=== PATIENT | male | born 1965 | race African-American/Black ===

== ENCOUNTER 2020-01-31 18:18 | Inpatient (IN) | payer OTHER ==
[~2020-01-31 18:18] MED LIST: Magnevist 469MG/ML 20 ML VIAL ONE
[2020-01-31] MEDS ORDERED: metroNIDAZOLE 500 MG/100 ML BAG ONE (18:57)
[2020-01-31] MEDS ORDERED: Ketorolac Tromethamine 30 MG/ML VIAL ONE (18:57)
[2020-01-31] MEDS ORDERED: cefTRIAXone\\ROCEPHIN 2 GM VIAL ONE (18:57)
[2020-01-31] MEDS ORDERED: Vancomycin 1.5 GRAM/300 ML BAG 1.5 GM in Premix Bag 1 BAG IVPB SCH (19:00)
[2020-01-31 19:13] LABS: Bacteria/HPF None Seen HPF (None Seen); Bilirubin Negative (Negative); Blood, Urine Trace (Negative); Clarity Clear (Clear); Glucose, Urine (Dipstick) Greater than 1000 mg/dL (Negative); Leukocyte Negative Leu/uL (Negative); Nitrite Negative (Negative); Protein, Urine (Dipstick) 10 mg/dL (Neg-Trace); RBC/HPF 0-3 HPF (0-3); Squamous Epithelial 0-3 HPF (0-3); Urobilinogen 3 mg/dL (Less than 2); WBC/HPF 0-3 HPF (0-3)
[2020-01-31 19:46] LABS: #Lymphocytes 1.3 thou/uL (1.20-3.40); #Neutrophils 8.4 thou/uL (1.40-6.50); %Basophils 0.3 % (0.0-1.0); %Eosinophils 0.1 % (0.0-10.0); %Lymphocytes 11.7 % (21.0-51.0); %Monocytes 9.3 % (0.0-10.0); %Neutrophils 78.7 % (42.0-75.0); Hemoglobin 11.5 g/dL (14.0-18.0); Mean Corpuscular HGB CONC 31.6 g/dL (32.0-36.0); Mean Corpuscular Hemoglobin 26.9 pg (27.0-31.0); Mean Corpuscular Volume 85.2 fL (78.0-98.0); Mean Platelet Volume 8.9 fL (7.4-10.4); Platelet Count 194 thou/uL (130-400); RBC Distribution Width 11.5 % (11.5-14.5); Red Blood Cell (RBC) Count 4.28 mill/uL (4.70-6.10); White Blood Cell (WBC) Count 10.7 thou/uL (4.8-10.8)
--- NOTE | 2020-01-31 20:00 | RAD ---
CHEST ONE VIEW: 01/31/20 HISTORY: Weakness. Pain. COMPARISON: None. FINDINGS: The lungs are clear. No pneumothorax or effusion. Cardiac silhouette and mediastinal contours are wit hin normal limits. No acute osseous abnormality. IMPRESSION: No acute intrathoracic abnormality. POS: HOME
[2020-01-31 20:07] LABS: ALT (SGPT) 28 U/L (8-55); AST (SGOT) 22 U/L (5-34); Albumin 3.6 g/dL (3.5-5.0); Alkaline Phosphatase 122 U/L (40-110); Anion Gap 14 mmol/L (10-20); BUN (Urea Nitrogen) 19 mg/dL (8.4-25.7); Bilirubin, Total 0.6 mg/dL (0.2-1.2); CK (CPK) 448 U/L (30-200); Calc. Creatinine Clearance 0 mL/min (70-130); Calcium 8.2 mg/dL (7.8-10.44); Carbon Dioxide 21 mmol/L (22-29); Chloride 102 mmol/L (98-107); Estimated GFR-MDRD 58; Globulin 3.1 g/dL (2.4-3.5); Glucose 273 mg/dL (70-105); Potassium 4.1 mmol/L (3.5-5.1); Protein, Total 6.7 g/dL (6.0-8.3); Sodium 133 mmol/L (136-145)
[2020-02-01] MEDS ORDERED: Ondansetron PF 4 MG/2 ML Vial IVP PRN (02:33)
[2020-02-01] MEDS ORDERED: Bisacodyl 5 MG TAB PO PRN (02:35)
[2020-02-01] MEDS ORDERED: Senokot S 8.6-50 MG TAB PO PRN (02:35)
[2020-02-01] MEDS ORDERED: predniSONE 20 MG TAB PO SCH (02:45)
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
[2020-02-01] MEDS ORDERED: Dextrose 5% in Water 1,000 ML IV PRN (03:01)
[2020-02-01] MEDS ORDERED: Dextrose 50% Abboject 50 ML SYRINGE SLOW IVP PRN (03:01)
[2020-02-01] MEDS: Sodium Chloride 0.9% 1,000 ML IV SCH ×2 (03:04→15:59)
[2020-02-01 03:29] VITALS: BMI 29.0
[2020-02-01 05:51] LABS: #Lymphocytes 0.9 thou/uL (1.20-3.40); #Monocytes 1.1 thou/uL (0.11-0.59); #Neutrophils 7.5 thou/uL (1.40-6.50); %Basophils 0.3 % (0.0-1.0); %Eosinophils 0.4 % (0.0-10.0); %Lymphocytes 9.3 % (21.0-51.0); %Monocytes 11.4 % (0.0-10.0); %Neutrophils 78.5 % (42.0-75.0); Hemoglobin 11.8 g/dL (14.0-18.0); Mean Corpuscular HGB CONC 31.6 g/dL (32.0-36.0); Mean Corpuscular Hemoglobin 27.4 pg (27.0-31.0); Mean Corpuscular Volume 86.6 fL (78.0-98.0); Platelet Count 168 thou/uL (130-400); RBC Distribution Width 11.6 % (11.5-14.5); Red Blood Cell (RBC) Count 4.33 mill/uL (4.70-6.10); White Blood Cell (WBC) Count 9.6 thou/uL (4.8-10.8)
[2020-02-01 06:10] LABS: Anion Gap 13 mmol/L (10-20); BUN (Urea Nitrogen) 15 mg/dL (8.4-25.7); CK (CPK) 344 U/L (30-200); Calc. Creatinine Clearance 110 mL/min (70-130); Calcium 8.5 mg/dL (7.8-10.44); Carbon Dioxide 21 mmol/L (22-29); Chloride 107 mmol/L (98-107); Estimated GFR-MDRD Greater than 90; Glucose 166 mg/dL (70-105); Potassium 3.9 mmol/L (3.5-5.1); Sodium 137 mmol/L (136-145)
[2020-02-01] MEDS: HumaLOG 300 UNITS/3 ML VIAL SC PRN ×3 (06:17→16:01)
[2020-02-01] MEDS: Acetaminophen 325 MG TAB PO PRN ×2 (06:33→21:03)
--- NOTE | 2020-02-01 07:32 | MRI ---
MRI LUMBAR SPINE WITH AND WITHOUT CONTRAST: Date: 01/31/2020 HISTORY: Fever and back pain. COMPARISON: None. FINDINGS: The aortic contour is nonaneurysmal. No hydronephrosis. Exam is severely limited due to motion artifa ct throughout the exam. Paraspinal musculature is symmetric. The conus medullaris terminates near the mid L1 vertebral body. No marrow infiltrative process. No abnormal enhancement. Levels are as follows: L1-2: Normal disc. No neural foraminal or spinal canal narrowing. There is a moderate circumferentia l disc bulge. Mild facet arthrosis. Moderate bilateral neural foraminal narrowing with abutment of ledy th exiting L2 nerve roots. The spinal canal measures approximately 7.0 mm. L3-4: Mild degenerative disc space height loss and desiccation. Mild facet arthrosis. Moderate circu mferential disc osteophyte complex. Moderate to severe neural foraminal narrowing with abutment of ledy th exiting nerve roots. Spinal canal measures approximately 6.0 mm. L4-5: Mild disc desiccation and height loss. There is a circumferential disc osteophyte complex with central annular fissure. There is moderate bilateral neural foraminal narrowing with abutment of bot h exiting and traversing nerve roots. Spinal canal measures approximately 5-6 mm. L5-S1: Normal disc. Very small bilateral subforaminal disc osteophyte complexes. Mild bilateral neur al foraminal narrowing. IMPRESSION: 1. No interval enhancement to suggest mass or diskitis/osteomyelitis. 2. Congenitally foreshortened pedicles with congenitally narrowed spinal canal via lumbar spine. 3. Disc desiccation and height loss and disc bulges/osteophyte complexes lower lumbar spine with mul tilevel neural foraminal narrowing and exiting nerve root abutment. This is greatest at L4-5. POS: HOME
--- NOTE | 2020-02-01 07:38 | MRI ---
MRI THORACIC SPINE WITH AND WITHOUT CONTRAST: Date: 01/31/2020 HISTORY: Transverse myelitis. COMPARISON: None. FINDINGS: There is abnormal enlargement and T2 signal within the lower cervical cord not evaluated on this thor acic spine MRI. There is a large disc bulge at C6-7 with anterior cord abutment. No definite abnormal enhancement of the thoracic cord. There are patchy focal areas of increased cord signal at the level of T1 which may be part of the contiguous lower cervical spine abnormality. There is no marrow infiltrative process. No thoracic spinal neural foraminal or spinal canal narrowin g. Paraspinal soft tissues are unremarkable. IMPRESSION: 1. Incompletely evaluated abnormal lower cervical cord enlargement with some low grade minimal enhan cement. This can be seen with transverse myelitis. A cervical spine MRI with and without contrast wou ld be recommended for this evaluation. 2. No neural foraminal or spinal canal narrowing of the thoracic spine. 4. No diskitis/osteomyelitis of the thoracic spine. POS: HOME
--- NOTE | 2020-02-01 07:47 | MRI ---
MRI CERVICAL SPINE WITH AND WITHOUT CONTRAST: Date: 01/31/2020 HISTORY: Transverse myelitis. COMPARISON: None. FINDINGS: Cerebellar tonsils normal. No marrow infiltrative process. There are Modic Type I end plate changes at C4-5. There is abnormal marker increased T2 signal throughout the cord from the level of C4-C7. This involv es both the anterior and posterior margin of the cord, as well as the loomis and white matter. There is mild increased T2 signal within the upper cervical cord, to a lesser degree, at C2 and C3, w ith volume loss. Levels are as follows: C2-3: Mild degenerative disc space height loss. Broad based posterior disc osteophyte complex greate st in the right lateral recess. Moderate bilateral neural foraminal narrowing. Minimal effacement of the ventral CSF space with the spinal canal measuring approximately 8.0 mm. C3-4: Mild degenerative disc space height loss. There is broad based posterior disc osteophyte compl ex greatest in the lateral recesses. Moderate to severe right and moderate left neural foraminal narr owing. Mild facet arthrosis. Spinal canal not significantly narrowed, approximately 8.0 mm. C4-5: Advanced degenerative disc space height loss with very large disc osteophyte complex, circumfe rential, with abutment of the anterior cord. Severe spinal canal narrowing of approximately 4-5 mm. T here is severe right and moderate to severe left neural foraminal narrowing. C5-6: Advanced degenerative disc space height loss with circumferential disc osteophyte complex. The re is severe bilateral neural foraminal narrowing. There is mild effacement of the ventral CSF space and spinal canal measuring approximately 8.0 mm. C6-7: Advanced degenerative disc space height loss with disc osteophyte complex. There is abutment o f the anterior cord. Mild ligamentum flavum hypertrophy. Spinal canal measures 6.0 mm. Moderate bilat eral neural foraminal narrowing. C7-T1: Relatively normal disc. No neural foraminal or spinal canal narrowing. IMPRESSION: 1. High grade T2 signal in a long segment of the cord from C4 to C6 with a small focal area of anter ior cord enhancement at the level of C4-5. This corresponds to the patient's history of transverse my elitis. There is also cord compression at just above this level due to a disc osteophyte complex at C 4-5 with spinal canal measuring 4-5 mm. Neurosurgical consultation advised. 2. Multilevel severe neural foraminal narrowing due to disc osteophyte complexes and facet arthrosis as described. 3. Abnormal increased fluid signal of the upper cervical cord at C2 and C3 with some volume loss and mild myelomalacia. 4. Small focal area of enhancement within the anterior cord at C4-5, underlying malignant process is felt less likely. 5. Laminectomy change at C4-C6. POS: HOME
[2020-02-01] MEDS: Enoxaparin Sodium 40 MG/0.4 ML SYRINGE SC SCH (08:52)
[2020-02-01] MEDS: Polyethylene Glycol 3350 17 GM Packet PO SCH (08:55)
[2020-02-01] MEDS: Famotidine 20 MG TAB PO SCH ×2 (08:55→21:03)
[2020-02-01] MEDS: Insulin Glargine 10 UNITS in Pre-Filled Syringe 1 EACH SC SCH ×2 (08:55→21:06)
[2020-02-01] MEDS: Vancomycin 1 GM in Premix Bag 1 BAG IVPB SCH ×2 (08:56→21:05)
[2020-02-01] MEDS: cloNIDine 0.1 MG TAB PO PRN (09:38)
--- NOTE | 2020-02-01 10:53 | PDOC.HOSPP ---
- Subjective Encounter Date: 02/01/20 Encounter Time: 09:00 Subjective: Patient seen and examined. No new complaints. No overnight events - Objective Vital Signs & Weight: Vital Signs (12 hours) Temp Pulse Resp BP BP Pulse Ox 02/01/20 09:38 182/90 H 02/01/20 08:50 99.8 F H 84 18 182/90 H 95 02/01/20 08:00 96 02/01/20 06:00 99.5 F 80 18 169/82 H 100 02/01/20 03:00 98.6 F 76 20 169/95 H 97 Weight Weight 185 lb I&O: 01/31/20 02/01/20 02/02/20 06:59 06:59 06:59 Intake Total 240 Balance 240 Result Diagrams: 02/01/20 05:30 02/01/20 05:30 Radiology Reviewed by me: Yes EKG Reviewed by me: Yes Hospitalist ROS - Review of Systems Constitutional: denies: fever, chills, sweats, weakness, malaise, other ENT: denies: ear pain, ear discharge, nose pain, nose discharge, nose congestion , mouth pain, mouth swelling, throat pain, throat swelling, other Respiratory: denies: cough, dry, shortness of breath, hemoptysis, SOB with excertion, pleuritic pain, sputum, wheezing, other Cardiovascular: denies: chest pain, palpitations, orthopnea, paroxysmal noc. dyspnea, edema, light headedness, other Gastrointestinal: denies: nausea, vomiting, abdominal pain, diarrhea, constipation, melena, hematochezia, other Genitourinary: denies: dysuria, frequency, incontinence, hematuria, retention, other Musculoskeletal: denies: neck pain, shoulder pain, arm pain, back pain, hand pain, leg pain, foot pain, other Skin: denies: rash, lesions, rafaela, bruising, other Neurological: reports: weakness, numbness. denies: incoordination, change in speech, confusion, seizures, other - Medication Medications: Active Medications Generic Name Dose Route Start Last Admin Trade Name Freq PRN Reason Stop Dose Admin Acetaminophen 650 mg 02/01/20 02:35 02/01/20 06:33 Tylenol PO 650 mg Q4H PRN Administration Headache/Fever/Mild Pain (1-3) Clonidine 0.1 mg 02/01/20 02:33 02/01/20 09:38 Catapres PO 0.1 mg BID PRN Administration SBP > 160 use second Enoxaparin Sodium 40 mg 02/01/20 09:00 02/01/20 08:52 Lovenox SC 40 mg 0900 FELICITAS Administration Famotidine 20 mg 02/01/20 09:00 02/01/20 08:55 Pepcid PO 20 mg BID FELICITAS Administration Sodium Chloride 1,000 mls @ 75 mls/hr 02/01/20 02:45 02/01/20 03:04 Normal Saline 0.9% IV 1,000 mls .[id number] FELICITAS Administration Insulin Glargine 10 units/ 0.1 mls @ 0 mls/hr 02/01/20 09:00 02/01/20 08:55 Miscellaneous Medication SC 0.1 mls BID FELICITAS Administration Vancomycin HCl 1 gm/ Device 200 mls @ 200 mls/hr 02/01/20 09:00 02/01/20 08: 56 IVPB 200 mls Q12HR FELICITAS Administration Insulin Human Lispro 0 units 02/01/20 03:01 02/01/20 06:17 Humalog SC 2 unit .MODERATE SLIDING SC PRN Administration Moderate Correctional Scale Polyethylene Glycol 17 gm 02/01/20 09:00 02/01/20 08:55 Miralax PO 17 gm DAILY FELICITAS Administration - Exam General Appearance: NAD, awake alert Eye: PERRL, anicteric sclera ENT: normocephalic atraumatic, no oropharyngeal lesions Neck: supple, symmetric, no JVD, no thyromegaly Heart: RRR, no murmur, no gallops, no rubs Respiratory: CTAB, no wheezes, no rales, no ronchi Gastrointestinal: soft, non-tender, non-distended, normal bowel sounds Extremities: no cyanosis, no clubbing Skin: normal turgor, no lesions Neurological - other findings: weakness and sensory deficit noted both upper and lower limb Musculoskeletal: normal tone, normal strength Psychiatric: normal affect, normal behavior Hosp A/P (1) Transverse myelitis Status: Acute (2) Elevated CK Status: Acute (3) Diabetes Code(s): E11.9 - TYPE 2 DIABETES MELLITUS WITHOUT COMPLICATIONS Status: Chronic Qualifiers: Diabetes mellitus type: type 2 Diabetes mellitus intermission coordinator insulin use: with senior living use Diabetes mellitus complication status: without complication Qualified Code(s): E11.9 - Type 2 diabetes mellitus without complications; Z79.4 - intermediate school teacher (current) use of insulin - Plan old records reviewed/req covid-19 test pending change metal shackles to plastic if OK with guards will consult neurosurgery based on cervical spine MRI medication reviewed and continue to provide symptomatic care continue IVF PT/OT
[2020-02-01] MEDS ORDERED: SODIUM CHLORIDE 0.9% IVPB SCH (12:00)
[2020-02-01] MEDS ORDERED: METHYLPREDNISOLONE SOD SUCC IVPB SCH (12:00)
[2020-02-01 12:09] LABS: SARS-CoV-2 MS2 Positive; SARS-CoV-2 N Gene Negative; SARS-CoV-2 S Gene Negative; SARS-CoV-2 orf1ab Negative
[2020-02-01] MEDS: Gabapentin 300 MG CAP PO SCH ×2 (12:46→21:03)
--- NOTE | 2020-02-01 14:15 | CT ---
EXAM: CT cervical spine PROVIDED CLINICAL HISTORY: Cervical stenosis. CT evaluation cervical spine for surgical planning. TECHNIQUE: Contiguous axial CT images are obtained through the cervical spine from the skull base to the T1-2 le nanda. Sagittal and coronal reformatted images are provided. COMPARISON: MRI cervical spine on 01/31/2020 FINDINGS: Laminectomy defects are again seen extending from C4 to C6. No fracture or traumatic subluxation is s een involving the cervical spine. Posterior osteophyte formation is seen at multiple levels with disc osteophyte complex present at the C4-5 level. Multilevel neural foraminal narrowing is again seen and better evaluated on prior MRI examination. No prevertebral soft tissue swelling apparent. Visualized lung apices appear clear. Visualized thyroid gland demonstrates a grossly normal nonenhanced CT appearance. IMPRESSION: 1. Postoperative changes related to laminectomy defects from C4 to C6. 2. Multilevel degenerative changes with disc osteophyte complexes present greatest at the C4-5 level where there is mass effect on the anterior aspect of the spinal cord with flattening the anterior aspect of the spinal cord. In addition, there is bony encroachment on the neural foramina at multiple levels with multilevel neural foraminal narrowing..
[2020-02-01] MEDS: metFORMIN 500 MG TAB PO SCH (15:59)
[2020-02-01] MEDS: Atorvastatin Calcium 10 MG TAB PO SCH (21:03)
[2020-02-01] MEDS: NPH, Human Insulin Isophane 300 UNIT/3 ML VIAL SC SCH (21:08)
[2020-02-02] MEDS: Acetaminophen 325 MG TAB PO PRN (00:37)
--- NOTE | 2020-02-02 01:54 | CON ---
DATE OF CONSULTATION: 02/01/2020 CHIEF COMPLAINT: Neck pain, multiple recent falls, and right greater than left leg weakness. HISTORY OF PRESENT ILLNESS: Mr. Jara is a pleasant 54-year-old male, who presents with neck pain and leg weakness with multiple recent falls over the last 4 to 5 days. He is a current inmate at a correctional facility in [place]. He denies any known preceding neck injury prior to onset of his falls. He reports that he has posterior and right greater than left lateral neck pain. He also reports pain across the anterior aspect of his right shoulder , but denies left shoulder pain. He denies radiation of pain into his arms. He reports he his unable to extend the fingers of his left hand at baseline. He is weaker in the right leg compared to his left. He denies significant back pain. He reports chronic paresthesias in his hands since 2011 when he had a posterior neck surgery done to biopsy his spinal cord. Reports that he was told that he has a history of transverse myelitis. PAST MEDICAL HISTORY: Type 2 diabetes mellitus, hypertension, hyperlipidemia, and transverse myelitis of cervical spine. PAST SURGICAL HISTORY: Multilevel cervical laminectomies with spinal cord biopsy in 2012 at an outside institution. SOCIAL HISTORY: Current tobacco use, smokes cigarettes, two packs per day. ALLERGIES: NO KNOWN DRUG ALLERGIES. PHYSICAL EXAMINATION: GENERAL: Patient is awake, alert, and appropriate. He has cranial nerves 2 through 12 grossly intact. Extraocular movements intact. Full range of motion of the neck. He has bilateral triceps weakness with 4/5 strength, otherwise he has good strength throughout the iliopsoas, deltoids, and biceps bilaterally. He has left hand contracture and is unable to extend the fingers of the left hand, he has a slight decreased strength with right hand janitor, however, this might be limited due to wrist restraints. He has 4/5 strength in the bilateral iliopsoas myotomes, more significant on the right with patient barely able to bend his knee. He has good strength in his hamstrings bilaterally. He has weakness with dorsiflexion and plantar flexion of the right foot, but good strength with dorsiflexion and plantar flexion of the left foot. Patient reports subjective decreased sensation in the right lower extremity compared to the left lower extremity. Gait was not assessed. IMPRESSION/DIAGNOSES: 1. 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 2. Status post prior cervical laminectomies and spinal cord biopsy. 3. Lumbar stenosis with myelopathy. 4. History of type 2 diabetes mellitus. 5. History of hypertension. 6. History of hyperlipidemia. 7. Tobacco use. PLAN: This case was discussed and imaging reviewed with Dr. Russo. Patient underwent complete spinal MRIs. Cervical MRI shows a congenitally narrowed canal with multilevel disk extrusions and associated central and foraminal stenosis, most severe at the C4-C5 and C6-C7 levels. There is foraminal stenosis at the C5-C6 level. There is patchy cervical edema up to the C2 level. Thoracic MRI is negative for any neural element compromise or other abnormalities. Lumbar MRI displays a congenitally narrowed canal with multilevel lumbar stenosis. A CT of the cervical spine without contrast was ordered for further assessment and surgical planning, and it revealed evidence of prior cervical laminectomies from C4-C7. Additionally, it shows an osteophytic disk at C4-C5. Although patient has reported a history of transverse myelitis, our team feels patient's large cervical disk extrusion is causing enhancement and signal abnormality on imaging. Suspect cervical spinal cord injury and associated edema. He will require urgent neurosurgical intervention with C4-C7 ACDF. No need for posterior decompression, given patient has a history of prior cervical laminectomies. Additionally, our team would like to surgically address patient's lumbar stenosis at the same time, given patient's right greater than left leg weakness on exam and multiple recent falls. Therefore, we will also perform L3-L5 laminectomies, partial facetectomies, and foraminotomies. We will re- evaluate patient tomorrow and obtain necessary consents. We will plan to take patient to the operating room on Thursday to perform both cervical and lumbar operations. He may remain on 81 mg aspirin preoperatively, and we will hold his Lovenox beginning tomorrow evening. I have ordered a [place] J cervical collar for patient to wear at all time prior to surgery. Additionally, I have ordered for placement of Meyers catheter given patient is likely retaining urine. Our team will see patient again tomorrow. Please call for any neurologic changes or other concerns. This was a 50-minute initial consult in which greater than 50% of the time was spent in review of records, imaging, evaluation, examination, and formulation of a plan. The remaining time was spent in counseling and coordination of care. Job ID: [id number] [facility]
[2020-02-02 05:57] LABS: #Lymphocytes 0.9 thou/uL (1.20-3.40); #Monocytes 0.2 thou/uL (0.11-0.59); #Neutrophils 12.1 thou/uL (1.40-6.50); %Basophils 0.3 % (0.0-1.0); %Lymphocytes 6.5 % (21.0-51.0); %Monocytes 1.6 % (0.0-10.0); %Neutrophils 91.5 % (42.0-75.0); Hemoglobin 12.2 g/dL (14.0-18.0); Mean Corpuscular HGB CONC 32.2 g/dL (32.0-36.0); Mean Corpuscular Hemoglobin 28.1 pg (27.0-31.0); Mean Corpuscular Volume 87.2 fL (78.0-98.0); Mean Platelet Volume 8.9 fL (7.4-10.4); Platelet Count 209 thou/uL (130-400); RBC Distribution Width 11.7 % (11.5-14.5); Red Blood Cell (RBC) Count 4.35 mill/uL (4.70-6.10); White Blood Cell (WBC) Count 13.2 thou/uL (4.8-10.8)
[2020-02-02] MEDS: HumaLOG 300 UNITS/3 ML VIAL SC PRN ×3 (05:59→16:20)
[2020-02-02] MEDS: Sodium Chloride 0.9% 1,000 ML IV SCH ×2 (06:07→21:37)
[2020-02-02 06:14] LABS: Anion Gap 15 mmol/L (10-20); BUN (Urea Nitrogen) 22 mg/dL (8.4-25.7); CK (CPK) 163 U/L (30-200); Calc. Creatinine Clearance 88 mL/min (70-130); Calcium 8.2 mg/dL (7.8-10.44); Carbon Dioxide 18 mmol/L (22-29); Chloride 107 mmol/L (98-107); Estimated GFR-MDRD 81; Glucose 403 mg/dL (70-105); Magnesium 2.2 mg/dL (1.6-2.6); Sodium 136 mmol/L (136-145)
[2020-02-02 08:19] LABS: Vancomycin, Trough 9.2 ug/mL
[2020-02-02] MEDS ORDERED: Aspirin 81 mg Enteric Coated Tablet PO SCH ×2 (09:00)
[2020-02-02] MEDS: Famotidine 20 MG TAB PO SCH ×2 (09:02→21:02)
[2020-02-02] MEDS: cloNIDine 0.1 MG TAB PO PRN (09:02)
[2020-02-02] MEDS: Hydrochlorothiazide 25 MG TAB PO SCH (09:02)
[2020-02-02] MEDS: Gabapentin 300 MG CAP PO SCH ×3 (09:03→21:03)
[2020-02-02] MEDS: metFORMIN 500 MG TAB PO SCH ×2 (09:03→15:30)
[2020-02-02] MEDS: Lisinopril 10 MG TAB PO SCH (09:03)
[2020-02-02] MEDS: Enoxaparin Sodium 40 MG/0.4 ML SYRINGE SC SCH (09:04)
[2020-02-02] MEDS: DULoxetine 60 MG CAP PO SCH (09:04)
[2020-02-02] MEDS: NPH, Human Insulin Isophane 300 UNIT/3 ML VIAL SC SCH ×2 (09:09→21:05)
[2020-02-02] MEDS: HYDROcodone/Acetaminophen 5/325 mg Tablet PO PRN ×2 (09:10→21:02)
[2020-02-02] MEDS: Polyethylene Glycol 3350 17 GM Packet PO SCH (09:11)
[2020-02-02] MEDS: Vancomycin HCl 1.25 GM in Sodium Chloride 0.9% 250 ML 250 ML IVPB SCH ×2 (09:47→21:03)
[2020-02-02] MEDS: Insulin Glargine 10 UNITS in Pre-Filled Syringe 1 EACH SC SCH ×2 (09:47→21:04)
--- NOTE | 2020-02-02 10:12 | PDOC.HOSPP ---
- Subjective Encounter Date: 02/02/20 Encounter Time: 09:00 Subjective: Patient seen and examined. No new complaints. No overnight events - Objective Vital Signs & Weight: Vital Signs (12 hours) Temp Pulse Resp BP BP Pulse Ox 02/02/20 09:03 163/73 H 02/02/20 09:02 163/73 H 02/02/20 07:08 98.3 F 51 L 20 163/73 H 98 02/02/20 04:52 99.0 F 59 L 18 154/87 H 97 02/02/20 00:00 98.5 F 62 18 153/77 H 99 Weight Weight 185 lb I&O: 02/01/20 02/02/20 02/03/20 06:59 06:59 06:59 Intake Total 1970 Output Total 1350 Balance 620 Result Diagrams: 02/02/20 05:40 02/02/20 05:40 Additional Labs: Accuchecks 02/02/20 02/01/20 02/01/20 03:51 19:17 16:04 POC Glucose 383 H 279 H 357 H 02/01/20 13:05 POC Glucose 302 H Hospitalist ROS - Review of Systems Eyes: denies: pain, vision change, conjunctivae inflammation, eyelid inflammation, redness, other ENT: denies: ear pain, ear discharge, nose pain, nose discharge, nose congestion , mouth pain, mouth swelling, throat pain, throat swelling, other Respiratory: denies: cough, dry, shortness of breath, hemoptysis, SOB with excertion, pleuritic pain, sputum, wheezing, other Cardiovascular: denies: chest pain, palpitations, orthopnea, paroxysmal noc. dyspnea, edema, light headedness, other Gastrointestinal: denies: nausea, vomiting, abdominal pain, diarrhea, constipation, melena, hematochezia, other Genitourinary: denies: dysuria, frequency, incontinence, hematuria, retention, other Musculoskeletal: denies: neck pain, shoulder pain, arm pain, back pain, hand pain, leg pain, foot pain, other Skin: denies: rash, lesions, rafaela, bruising, other Neurological: reports: weakness, numbness. denies: incoordination, change in speech, confusion, seizures, other - Medication Medications: Active Medications Generic Name Dose Route Start Last Admin Trade Name Freq PRN Reason Stop Dose Admin Acetaminophen 650 mg 02/01/20 02:35 02/02/20 00:37 Tylenol PO 650 mg Q4H PRN Administration Headache/Fever/Mild Pain (1-3) Hydrocodone Bitart/Acetaminophen 1 tab 02/01/20 02:35 02/02/20 09:10 [place] 5/325 PO 1 tab Q4H PRN Administration Moderate Pain (4-6) Aspirin 81 mg 02/02/20 09:00 02/02/20 09:04 Ecotrin PO Not Given DAILY FELICITAS Atorvastatin Calcium 10 mg 02/01/20 21:00 02/01/20 21:03 Lipitor PO 10 mg HS FELICITAS Administration Clonidine 0.1 mg 02/01/20 02:33 02/02/20 09:02 Catapres PO 0.1 mg BID PRN Administration SBP > 160 use second Duloxetine HCl 60 mg 02/02/20 09:00 02/02/20 09:04 Cymbalta PO 60 mg DAILY FELICITAS Administration Enoxaparin Sodium 40 mg 02/01/20 09:00 02/02/20 09:04 Lovenox SC Not Given 0900 FELICITAS Famotidine 20 mg 02/01/20 09:00 02/02/20 09:02 Pepcid PO 20 mg BID FELICITAS Administration Gabapentin 600 mg 02/01/20 15:00 02/02/20 09:03 Neurontin PO 600 mg TID FELICITAS Administration Hydrochlorothiazide 25 mg 02/02/20 09:00 02/02/20 09:02 Hydrochlorothiazide PO 25 mg DAILY FELICITAS Administration Sodium Chloride 1,000 mls @ 75 mls/hr 02/01/20 02:45 02/02/20 06:07 Normal Saline 0.9% IV 1,000 mls .[id number] FELICITAS Administration Insulin Glargine 10 units/ 0.1 mls @ 0 mls/hr 02/01/20 09:00 02/02/20 09:47 Miscellaneous Medication SC 0.1 mls BID FELICITAS Administration Methylprednisolone Sodium 66 mls @ 132 mls/hr 02/01/20 12:00 02/01/20 12:45 Succinate 1 gm/ Sodium IVPB 02/04/20 12:29 66 mls Chloride 1200 FELICITAS Administration Vancomycin HCl 1.25 gm/ Sodium 250 mls @ 166.667 mls/hr 02/02/20 09:00 09:47 Chloride IVPB 250 mls Q12HR FELICITAS Administration Insulin Human Lispro 0 units 02/01/20 03:01 02/02/20 05:59 Humalog SC 10 unit .MODERATE SLIDING SC PRN Administration Moderate Correctional Scale Insulin Human NPH 20 unit 02/01/20 21:00 02/01/20 21:08 Humulin N SC 20 unit QPM FELICITAS Administration Insulin Human NPH 25 unit 02/02/20 09:00 02/02/20 09:09 Humulin N SC 25 unit QAM FELICITAS Administration Lisinopril 20 mg 02/02/20 09:00 02/02/20 09:03 Zestril PO 20 mg DAILY FELICITAS Administration Metformin HCl 1,000 mg 02/01/20 17:00 02/02/20 09:03 Glucophage PO 1,000 mg BID-WM FELICITAS Administration Pantoprazole Sodium 40 mg 02/02/20 09:00 02/02/20 09:04 Protonix PO 40 mg DAILY FELICITAS Administration Polyethylene Glycol 17 gm 02/01/20 09:00 02/02/20 09:11 Miralax PO 17 gm DAILY FELICITAS Administration Sodium Chloride 10 ml 02/01/20 03:52 02/01/20 21:06 Flush - Normal Saline IVF 10 ml PRN PRN Administration Saline Flush - Exam General Appearance: NAD, awake alert Eye: PERRL, anicteric sclera ENT: normocephalic atraumatic, no oropharyngeal lesions Neck: supple, symmetric, no JVD Heart: RRR, no murmur, no gallops, no rubs Respiratory: CTAB, no wheezes, no rales, no ronchi Gastrointestinal: soft, non-tender, non-distended, normal bowel sounds Extremities: no cyanosis, no clubbing, no edema Skin: normal turgor, no lesions Neurological - other findings: weakness noted Musculoskeletal: normal tone, normal strength, no muscle wasting Psychiatric: normal affect, normal behavior Hosp A/P (1) Transverse myelitis Status: Acute (2) Elevated CK Status: Acute (3) Diabetes Code(s): E11.9 - TYPE 2 DIABETES MELLITUS WITHOUT COMPLICATIONS Status: Chronic Qualifiers: Diabetes mellitus type: type 2 Diabetes mellitus long wall shear operator insulin use: with long wall shear operator use Diabetes mellitus complication status: without complication Qualified Code(s): E11.9 - Type 2 diabetes mellitus without complications; Z79.4 - intermediate (current) use of insulin - Plan old records reviewed/req covid-19 test pending change metal shackles to plastic if OK with guards will consult neurosurgery based on cervical spine MRI medication reviewed and continue to provide symptomatic care continue IVF PT/OT 02/02/20 plan for surgery tomorrow for cervical cord compression supportive care for now
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
--- NOTE | 2020-02-02 12:53 | PRG ---
DATE OF SERVICE: 02/02/2020 This is a 50-minute initial hospital visit note, in which 50 minutes were spent reviewing the imaging record, evaluation, and examination of the patient, formulation of plan. Greater than 50% of the time was spent in counseling on Justin Jara. I reviewed the notes of my colleague, Mitali Alegre PA-C, and agrees with its content. SUBJECTIVE: Mr. Jara is a 54-year-old incarcerated man, who in 2011 underwent a C4 to C7 laminectomy and spinal cord biopsy at [facility] for concern of transverse myelitis. It sounds like prior to and even following this surgery, he has been impaired from a myelopathic and radiculopathic standpoint. He has also had low back and leg pain with dorsiflexor and toe extensor weakness as well. Over the last 5 days, he has been falling more. Review of his cervical spine MRI demonstrates evidence of decompression from the bottom of C3 to the top of C7 with disk extrusions at C4-C5 and cord compression and also at C6-C7. There is edema in the cord along with enhancement in the region of the disk and in the cord compression at C4-C5. While he is decompressed posteriorly he has significant cord edema. I have seen cases while at [facility] of enhancement along with T2 signal abnormality in areas of compression, and as such, I am concerned that this is what may be transverse myelitis. I am more concerned that this could be a compressive myelopathy ventrally. The patient has congenital stenosis anyway and while he is decompressed posteriorly, he still has a significant amount of compression. 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 OBJECTIVE: On exam, he is alert and appropriate. He has contractures bilaterally and is weak in all 4 extremities. The rest of his exam is outlined in my colleague's note, but he has findings for myelopathy such as clonus as well. I have recommended surgery. I would recommend we do this tomorrow. This would be a C4 to C7 ACDF and an L3 to L5 laminectomy, partial facetectomy, and foraminotomies. My goal here would be to decompress his neural elements, where they are the most compressed and essentially stabilize him. I think this will maximize his potential for outcome to improve his severe myelopathy and radiculopathy. He has already been on steroids to treat his concern of transverse myelitis and my goal would be to reduce these to control his glucose better. We will plan for surgery tomorrow. [facility]. Informed consent was discussed in detail regarding C4 to C7 ACDF and L3 to L5 laminectomy, partial facetectomy, and foraminotomy. The patient would like to proceed with surgery. Risks up to and including temporary and permanent neurologic deficit, hoarseness, swallowing problems, and need for further surgery, infection, medical complications and both regional and systemic complications were discussed in detail. The patient understands all this and wishes that we proceed with surgery. DIAGNOSES: 1. Cervical myelopathy with acute on subacute decline. 2. Lumbar stenosis with lumbar radiculopathy . Job ID: [id number]
[2020-02-02] MEDS: Atorvastatin Calcium 10 MG TAB PO SCH (21:03)
[2020-02-03] MEDS: hydrALAZINE 20 MG/ML VIAL SLOW IVP PRN (04:19)
[2020-02-03] MEDS: HumaLOG 300 UNITS/3 ML VIAL SC PRN ×2 (04:22→16:23)
[2020-02-03 05:53] LABS: INR-International Normal Ratio 0.9; Prothrombin Time 11.8 sec (12.0-14.7)
[2020-02-03 05:54] LABS: PTT 25.3 SEC (22.9-36.1)
[2020-02-03 06:15] LABS: Anion Gap 14 mmol/L (10-20); BUN (Urea Nitrogen) 19 mg/dL (8.4-25.7); Calc. Creatinine Clearance 96 mL/min (70-130); Calcium 8.6 mg/dL (7.8-10.44); Carbon Dioxide 22 mmol/L (22-29); Chloride 107 mmol/L (98-107); Estimated GFR-MDRD 89; Glucose 241 mg/dL (70-105); Sodium 139 mmol/L (136-145)
[2020-02-03] MEDS ORDERED: Midazolam HCl 2 mg/2 ml Vial ONE (06:30)
[2020-02-03] MEDS ORDERED: Fentanyl 100 MCG/2 ML VIAL ONE ×2 (06:30→13:25)
[2020-02-03] MEDS ORDERED: Thrombin 5000 UNITS/5 ML VIAL ONE (06:35)
[2020-02-03 07:06] LABS: Hemoglobin 12.2 g/dL (14.0-18.0); Mean Corpuscular HGB CONC 33.3 g/dL (32.0-36.0); Mean Corpuscular Hemoglobin 28.7 pg (27.0-31.0); Mean Corpuscular Volume 86.2 fL (78.0-98.0); Mean Platelet Volume 8.9 fL (7.4-10.4); Platelet Count 230 thou/uL (130-400); RBC Distribution Width 11.8 % (11.5-14.5); Red Blood Cell (RBC) Count 4.25 mill/uL (4.70-6.10)
[2020-02-03 08:17] LABS: Band 14 % (5-11); Lymphocytes 11 % (21-51); MDiff Complete? YES; Monocytes 7 % (0-10); Neutrophil 68 % (42-75); Platelet Morphology Comment Appears Adequate; Polychromasia SLIGHT = 2-3 cells (100X) (0-2/hpf)
[2020-02-03] MEDS ORDERED: Rocuronium Bromide 50 MG/5 ML VIAL ONE (10:14)
[2020-02-03] MEDS ORDERED: EPHEDRINE 25 MG/5 ML SYRINGE ONE (11:30)
[2020-02-03] MEDS ORDERED: PHENYLEPHRINE-NS 100 MCG/ML 10 ML SYRINGE ONE ×2 (11:30→12:00)
[2020-02-03] MEDS ORDERED: Lidocaine 1% PF 5 ML VIAL ONE (11:30)
[2020-02-03] MEDS ORDERED: Rocuronium Bromide 10 MG/ML (10ML VIAL) ONE (11:30)
[2020-02-03] MEDS ORDERED: Glycopyrrolate 0.2 MG/ML 5 ML SYRINGE ONE (11:30)
[2020-02-03] MEDS ORDERED: Dexamethasone 20 MG/5 ML VIAL ONE (11:30)
[2020-02-03] MEDS ORDERED: PROPOFOL 200 MG/20 ML VIAL ONE (11:30)
[2020-02-03] MEDS ORDERED: Ondansetron PF 4 MG/2 ML Vial ONE (11:30)
[2020-02-03] MEDS ORDERED: HYDROmorphone 2 MG/ML VIAL ONE (12:33)
[2020-02-03] MEDS ORDERED: Ondansetron HCl/PF 4 MG/2 ML Vial IVP PRN (12:57)
[2020-02-03] MEDS ORDERED: Promethazine HCl 25 MG/ML VIAL IM PRN (12:57)
[2020-02-03] MEDS ORDERED: HYDROmorphone 2 MG/ML VIAL SLOW IVP PRN (12:57)
[2020-02-03] MEDS ORDERED: Promethazine HCl 25 MG/ML VIAL SLOW IVP PRN (12:57)
[2020-02-03] MEDS ORDERED: tiZANidine HCl 4 MG TAB PO PRN (14:02)
[2020-02-03] MEDS: DULoxetine 60 MG CAP PO SCH (14:19)
[2020-02-03] MEDS: Famotidine 20 MG TAB PO SCH ×2 (14:19→19:55)
[2020-02-03] MEDS: Insulin Glargine 10 UNITS in Pre-Filled Syringe 1 EACH SC SCH ×2 (14:19→20:09)
[2020-02-03] MEDS: metFORMIN 500 MG TAB PO SCH ×2 (14:19→16:23)
[2020-02-03] MEDS: Hydrochlorothiazide 25 MG TAB PO SCH (14:19)
[2020-02-03] MEDS: Gabapentin 300 MG CAP PO SCH ×3 (14:19→19:55)
[2020-02-03] MEDS: Polyethylene Glycol 3350 17 GM Packet PO SCH (14:20)
[2020-02-03] MEDS: NPH, Human Insulin Isophane 300 UNIT/3 ML VIAL SC SCH ×2 (14:20→20:08)
[2020-02-03] MEDS: Vancomycin HCl 1.25 GM in Sodium Chloride 0.9% 250 ML 250 ML IVPB SCH ×2 (14:20→23:43)
[2020-02-03] MEDS: Lisinopril 10 MG TAB PO SCH (14:20)
[2020-02-03] MEDS: Sodium Chloride 0.9% 1,000 ML IV SCH ×2 (14:30→20:47)
[2020-02-03] MEDS: CEFAZOLIN 2 GM in Premix Bag 1 BAG IVPB SCH ×2 (14:31→22:27)
[2020-02-03] MEDS: Morphine 2 MG/ML SYRINGE SLOW IVP PRN ×2 (14:35→17:24)
--- NOTE | 2020-02-03 16:20 | PDOC.HOSPP ---
- Subjective Encounter Date: 02/03/20 Encounter Time: 04:10 Subjective: pt returned from PACU- neck drain, discomfort; otherwise stable. - Objective Vital Signs & Weight: Vital Signs (12 hours) Temp Pulse Resp BP BP Pulse Ox 02/03/20 15:31 98.7 F 99 18 134/76 96 02/03/20 14:20 174/75 H 02/03/20 14:00 99.5 F 102 H 18 118/68 94 L 02/03/20 04:29 156/80 H 02/03/20 04:19 68 174/75 H Weight Weight 185 lb I&O: 02/02/20 02/03/20 02/04/20 06:59 06:59 06:59 Intake Total 1970 3040 Output Total 1350 2500 Balance 620 540 Result Diagrams: 02/03/20 05:22 02/03/20 05:22 Additional Labs: Accuchecks 02/03/20 02/03/20 02/03/20 15:07 13:02 04:14 POC Glucose 243 H 259 H 268 H 02/02/20 02/02/20 19:24 16:07 POC Glucose 186 H 317 H Hospitalist ROS - Medication Medications: Active Medications Generic Name Dose Route Start Last Admin Trade Name Freq PRN Reason Stop Dose Admin Acetaminophen 650 mg 02/01/20 02:35 02/02/20 00:37 Tylenol PO 650 mg Q4H PRN Administration Headache/Fever/Mild Pain (1-3) Hydrocodone Bitart/Acetaminophen 1 tab 02/01/20 02:35 02/02/20 21:02 [place] 5/325 PO 1 tab Q4H PRN Administration Moderate Pain (4-6) Atorvastatin Calcium 10 mg 02/01/20 21:00 02/02/20 21:03 Lipitor PO 10 mg HS FELICITAS Administration Clonidine 0.1 mg 02/01/20 02:33 02/02/20 09:02 Catapres PO 0.1 mg BID PRN Administration SBP > 160 use second Duloxetine HCl 60 mg 02/02/20 09:00 02/03/20 14:19 Cymbalta PO Not Given DAILY FELICITAS Famotidine 20 mg 02/01/20 09:00 02/03/20 14:19 Pepcid PO Not Given BID FELICITAS Gabapentin 600 mg 02/01/20 15:00 02/03/20 14:30 Neurontin PO 600 mg TID FELICITAS Administration Hydralazine HCl 10 mg 02/01/20 02:33 02/03/20 04:19 Apresoline SLOW IVP 10 mg Q6H PRN Administration SBP GREATER THAN 160 Hydrochlorothiazide 25 mg 02/02/20 09:00 02/03/20 14:19 Hydrochlorothiazide PO Not Given DAILY [facility] Sodium Chloride 1,000 mls @ 75 mls/hr 02/01/20 02:45 02/03/20 14:30 Normal Saline 0.9% IV 1,000 mls .[id number] FELICITAS Administration Insulin Glargine 10 units/ 0.1 mls @ 0 mls/hr 02/01/20 09:00 02/03/20 14:19 Miscellaneous Medication SC Not Given BID [facility] Cefazolin Sodium/Dextrose 2 gm 50 mls @ 100 mls/hr 02/03/20 15:00 02/03/20 14 :31 / Device IVPB 50 mls [id number] FELICITAS Administration Insulin Human Lispro 0 units 02/01/20 03:01 02/03/20 04:22 Humalog SC 6 unit .MODERATE SLIDING SC PRN Administration Moderate Correctional Scale Insulin Human NPH 20 unit 02/01/20 21:00 02/02/20 21:05 Humulin N SC 20 unit QPM FELICITAS Administration Insulin Human NPH 25 unit 02/02/20 09:00 02/03/20 14:20 Humulin N SC Not Given QAM [facility] Lisinopril 20 mg 02/02/20 09:00 02/03/20 14:20 Zestril PO Not Given DAILY [facility] Metformin HCl 1,000 mg 02/01/20 17:00 02/03/20 14:19 Glucophage PO Not Given BID-WM [facility] Morphine Sulfate 2 mg 02/03/20 14:02 02/03/20 14:35 Morphine SLOW IVP 2 mg Q1H PRN Administration Severe Pain (7-10) Pantoprazole Sodium 40 mg 02/02/20 09:00 02/03/20 14:20 Protonix PO Not Given DAILY [facility] Polyethylene Glycol 17 gm 02/01/20 09:00 02/03/20 14:20 Miralax PO Not Given DAILY [facility] Sodium Chloride 10 ml 02/01/20 03:52 02/01/20 21:06 Flush - Normal Saline IVF 10 ml PRN PRN Administration Saline Flush - Exam General Appearance: NAD, awake alert General - other findings: s/p cervical laminectomy, drain in the neck, neck collar Heart: RRR Respiratory: CTAB, normal chest expansion Gastrointestinal: soft, normal bowel sounds Psychiatric: A&O x 3 Hosp A/P - Plan 1) Transverse myelitis (2) Elevated CK (3) Diabetes covid-19 test pending------->negative change metal shackles to plastic if OK with guards medication reviewed and continue to provide symptomatic care continue IVF PT/OT, when able. s/p s/p c4-c7 ACDF and L3-L5 laminectomy will follow. labs ordered for am.
[2020-02-03] MEDS ORDERED: Sodium Chloride 0.9% 500 ML IV SCH (19:45)
[2020-02-03] MEDS: HYDROcodone/Acetaminophen 5/325 mg Tablet PO PRN (19:54)
[2020-02-03] MEDS: Atorvastatin Calcium 10 MG TAB PO SCH (19:55)
[2020-02-03 20:33] LABS: Vancomycin, Trough 15.6 ug/mL
[2020-02-03 22:06] LABS: #Lymphocytes 1.7 thou/uL (1.20-3.40); #Monocytes 0.8 thou/uL (0.11-0.59); #Neutrophils 8.7 thou/uL (1.40-6.50); %Basophils 0.4 % (0.0-1.0); %Eosinophils 0.2 % (0.0-10.0); %Lymphocytes 14.8 % (21.0-51.0); %Monocytes 6.9 % (0.0-10.0); %Neutrophils 77.8 % (42.0-75.0); Hemoglobin 10.8 g/dL (14.0-18.0); Mean Corpuscular HGB CONC 31.7 g/dL (32.0-36.0); Mean Corpuscular Hemoglobin 27.8 pg (27.0-31.0); Mean Corpuscular Volume 87.7 fL (78.0-98.0); Mean Platelet Volume 8.5 fL (7.4-10.4); Platelet Count 231 thou/uL (130-400); RBC Distribution Width 11.8 % (11.5-14.5); Red Blood Cell (RBC) Count 3.89 mill/uL (4.70-6.10); White Blood Cell (WBC) Count 11.2 thou/uL (4.8-10.8)
[2020-02-03 22:27] LABS: ALT (SGPT) 19 U/L (8-55); AST (SGOT) 22 U/L (5-34); Albumin 2.9 g/dL (3.5-5.0); Alkaline Phosphatase 93 U/L (40-110); Anion Gap 14 mmol/L (10-20); BUN (Urea Nitrogen) 18 mg/dL (8.4-25.7); Bilirubin, Total 0.2 mg/dL (0.2-1.2); Calc. Creatinine Clearance 93 mL/min (70-130); Calcium 7.8 mg/dL (7.8-10.44); Carbon Dioxide 21 mmol/L (22-29); Chloride 105 mmol/L (98-107); Estimated GFR-MDRD 86; Globulin 3.3 g/dL (2.4-3.5); Glucose 212 mg/dL (70-105); Potassium 4.4 mmol/L (3.5-5.1); Protein, Total 6.2 g/dL (6.0-8.3); Sodium 136 mmol/L (136-145)
[2020-02-03] MEDS: Acetaminophen 325 MG TAB PO PRN (22:29)
[2020-02-04 01:21] LABS: Lactic Acid 1.7 mmol/L (0.5-2.2)
[2020-02-04 05:40] LABS: Hemoglobin 11.1 g/dL (14.0-18.0); Mean Corpuscular HGB CONC 33.1 g/dL (32.0-36.0); Mean Corpuscular Hemoglobin 28.5 pg (27.0-31.0); Mean Corpuscular Volume 86.1 fL (78.0-98.0); Mean Platelet Volume 8.2 fL (7.4-10.4); Platelet Count 212 thou/uL (130-400); RBC Distribution Width 11.9 % (11.5-14.5); Red Blood Cell (RBC) Count 3.88 mill/uL (4.70-6.10); White Blood Cell (WBC) Count 13.2 thou/uL (4.8-10.8)
[2020-02-04 05:44] LABS: Band 6 % (5-11); Lymphocytes 10 % (21-51); MDiff Complete? YES; Monocytes 12 % (0-10); Neutrophil 72 % (42-75)
--- NOTE | 2020-02-04 06:17 | OP ---
DATE OF PROCEDURE: 02/03/2020 LOCATION: OR 12. REGIONAL ENVIRONMENTAL MANAGER: Mitali Alegre PA-C PREPROCEDURE DIAGNOSES: Cervical stenosis with progressive myelopathy and lumbar stenosis with cauda equina compression and progressive radiculopathy, all of which resulting in neurologic decline and inability to walk. POSTPROCEDURE DIAGNOSES: Cervical stenosis with progressive myelopathy and lumbar stenosis with cauda equina compression and progressive radiculopathy, all of which resulting in neurologic decline and inability to walk. PROCEDURES PERFORMED: 1. C4-C5, C5-C6, and C6-C7 anterior diskectomies for decompression of spinal cord and nerve roots. 2. Placement of interbody spacers, packed with local bone autograft, obtained with same incision and allograft, C4, C5, C6, and C7. 3. Interbody fusion, C4, C5, C6, and C7. 4. Anterior cervical plate and screw fixation, C4, C5, C6, and C7. 5. Lumbar laminectomy L3-L4, L4-L5, partial facetectomies. DESCRIPTION OF PROCEDURE: After informed consent was obtained from the patient, the patient was brought to the OR. Proper patient, pause, and identification were carried out. He was placed under excellent general endotracheal anesthesia and positioned supine on the OR table. All appropriate points were padded. We identified the right anterior oblique, marked it to allow for approach to the anterior C4, C5, C6, and C7 segments. This region was sterilely cleansed, prepared, and draped. Proper patient, pause, and identification were carried out. The wound was then opened with a combination of sharp, monopolar, and blunt dissection and we exposed lateral to the pharynx, trachea, and esophagus, medial to the right carotid sheath of the C4, C5, C6, and C7 segments. Retractors were placed. We then performed use of operating microscope, microdiskectomy on C4, C5, C6, and C7, anterior diskectomies, decompression of the spinal cord and nerve roots. Interbody spacers were placed at C4, C5, C6, and C7. I was satisfied with our decompression at all of those levels. Anterior cervical plate and screw fixation, C4, C5, C6, C7 then occurred. Copious irrigation occurred throughout as did maximizing hemostasis. The wound was then closed in anatomic layers over a drain. We then positioned the patient prone and opened up the L3 through L5 segments and localization film confirmed our area of interest following exposure of the L3, L4, and L5 lamina. We then performed L3 through L5 laminectomy, partial facetectomy, and foraminotomies with excellent decompression of common dural tube and nerve roots. Satisfied with our decompression, we then closed the wound in anatomic layers following sprinkling of vancomycin powder. The patient then emerged from anesthesia. Job ID: [id number]
[2020-02-04] MEDS: Sodium Chloride 0.9% 1,000 ML IV SCH (06:19)
[2020-02-04] MEDS: HumaLOG 300 UNITS/3 ML VIAL SC PRN ×4 (06:20→20:48)
[2020-02-04] MEDS: CEFAZOLIN 2 GM in Premix Bag 1 BAG IVPB SCH ×3 (06:20→23:18)
[2020-02-04] MEDS: Acetaminophen 325 MG TAB PO PRN ×3 (06:24→23:18)
[2020-02-04] MEDS: metFORMIN 500 MG TAB PO SCH ×2 (08:28→17:16)
[2020-02-04] MEDS: Famotidine 20 MG TAB PO SCH ×2 (08:29→20:25)
[2020-02-04] MEDS: Lisinopril 10 MG TAB PO SCH (08:29)
[2020-02-04] MEDS: Hydrochlorothiazide 25 MG TAB PO SCH (08:29)
[2020-02-04] MEDS: Gabapentin 300 MG CAP PO SCH ×3 (08:30→20:25)
[2020-02-04] MEDS: Insulin Glargine 10 UNITS in Pre-Filled Syringe 1 EACH SC SCH (08:31)
[2020-02-04] MEDS: Polyethylene Glycol 3350 17 GM Packet PO SCH (08:32)
[2020-02-04] MEDS: NPH, Human Insulin Isophane 300 UNIT/3 ML VIAL SC SCH ×2 (08:35→21:01)
[2020-02-04] MEDS: DULoxetine 60 MG CAP PO SCH (08:42)
[2020-02-04] MEDS: Vancomycin HCl 1.25 GM in Sodium Chloride 0.9% 250 ML 250 ML IVPB SCH (12:32)
[2020-02-04] MEDS ORDERED: Enoxaparin Sodium 40 MG/0.4 ML SYRINGE SC SCH (13:15)
--- NOTE | 2020-02-04 13:22 | PRG ---
DATE OF SERVICE: 02/04/2020 Mr. Jara is now postoperative day #1 following C4-C7 ACDF and L3-L5 laminectomy. This morning his upper extremity strength has improved compared to before surgery as he is antigravity at the shoulder, the elbow, and at the hands. He still has hand contracture, although he and I both agree that his upper extremity strength bilaterally has improved. He has no pain into his upper extremities. What he does endorse is that his right lower extremity has decreased sensation and strength. He had this even preoperatively. It is not improved and perhaps maybe even a bit worse, although again this was the major issue preoperatively as well and this is simply going to take time as he had a compressive component of myelopathy, but also certainly an inflammatory component that may have been related to the compression of the disk extrusion in particular at C4-C5, thus the intramedullary enhancement but also transverse myelitis. I have stopped his steroids as they were leading to very excessive glucose measurements into the 300 and 400s. They are now improved, into the 200s, but again now that he is decompressed, I would like for our medical colleagues to maximize his glucose control. We will leave his drain in place at this point as he has had 15 mL out of sanguinous output but again is moderately dysphonic and mildly dysphagic. The order of the day next will be getting rehab involved if that is possible with an incarcerated individual. He may benefit from oral baclofen as well, in particular for his right lower extremity spastic monoparesis. Job ID: [id number] MTDD
[2020-02-04 14:06] LABS: Vancomycin, Trough 40.5 ug/mL
--- NOTE | 2020-02-04 14:28 | PDOC.HOSPP ---
- Subjective Encounter Date: 02/04/20 Encounter Time: 11:00 Subjective: THe patient states he has some mild neck pain. He reports he hasn't had his dressing changed yet. He got out to the side of the bed but hasn't ambulated. He has chronic RLE weakness. He reports fever of 100.2 today. He reported mild SOB Patient reports last transverse myelitis attack was 2011. He has no history of stroke. Per [employer] they will try to send him to a [facility] bed on discharge but they cannot do PT there, so will need to know what therapy he needs prior to dc - Objective Vital Signs & Weight: Vital Signs (12 hours) Temp Pulse Resp BP BP BP Pulse Ox 02/04/20 14:08 123/79 02/04/20 12:40 99.3 F 02/04/20 10:46 100.2 F H 92 18 159/90 H 93 L 02/04/20 09:17 133/76 02/04/20 08:29 133/76 02/04/20 08:26 99.5 F 02/04/20 08:18 100.5 F H 02/04/20 07:05 100.4 F H 87 18 133/76 94 L 02/04/20 06:21 101.2 F H 02/04/20 03:25 100.3 F H 02/04/20 03:15 101.7 F H 96 18 132/72 96 Weight Weight 185 lb I&O: 02/03/20 02/04/20 02/05/20 06:59 06:59 06:59 Intake Total 3040 875 Output Total 2500 1265 Balance 540 -390 Result Diagrams: 02/04/20 05:11 02/03/20 21:56 Additional Labs: Accuchecks 02/04/20 02/04/20 02/03/20 10:28 05:16 20:08 POC Glucose 223 H 231 H 202 H 02/03/20 15:07 POC Glucose 243 H Hospitalist ROS - Review of Systems Constitutional: denies: fever, chills - Medication Medications: Active Medications Generic Name Dose Route Start Last Admin Trade Name Freq PRN Reason Stop Dose Admin Acetaminophen 650 mg 02/01/20 02:35 02/04/20 06:24 Tylenol PO 650 mg Q4H PRN Administration Headache/Fever/Mild Pain (1-3) Hydrocodone Bitart/Acetaminophen 1 tab 02/01/20 02:35 02/03/20 19:54 [place] 5/325 PO 1 tab Q4H PRN Administration Moderate Pain (4-6) Atorvastatin Calcium 10 mg 02/01/20 21:00 02/03/20 19:55 Lipitor PO 10 mg HS FELICITAS Administration Clonidine 0.1 mg 02/01/20 02:33 02/02/20 09:02 Catapres PO 0.1 mg BID PRN Administration SBP > 160 use second Duloxetine HCl 60 mg 02/02/20 09:00 02/04/20 08:42 Cymbalta PO 60 mg DAILY FELICITAS Administration Enoxaparin Sodium 40 mg 02/04/20 13:15 02/04/20 14:03 Lovenox SC 02/04/20 15:15 40 mg NOW FELICITAS Administration Famotidine 20 mg 02/01/20 09:00 02/04/20 08:29 Pepcid PO 20 mg BID FELICITAS Administration Gabapentin 600 mg 02/01/20 15:00 02/04/20 08:30 Neurontin PO 600 mg TID FELICITAS Administration Hydralazine HCl 10 mg 02/01/20 02:33 02/03/20 04:19 Apresoline SLOW IVP 10 mg Q6H PRN Administration SBP GREATER THAN 160 Hydrochlorothiazide 25 mg 02/02/20 09:00 02/04/20 08:29 Hydrochlorothiazide PO 25 mg DAILY FELICITAS Administration Sodium Chloride 1,000 mls @ 75 mls/hr 02/01/20 02:45 02/04/20 06:19 Normal Saline 0.9% IV 1,000 mls .[id number] FELICITAS Administration Cefazolin Sodium/Dextrose 2 gm 50 mls @ 100 mls/hr 02/03/20 15:00 02/04/20 06 :20 / Device IVPB 50 mls 0700,1500,2300 FELICITAS Administration Vancomycin HCl 1.25 gm/ Sodium 250 mls @ 166.667 mls/hr 02/03/20 23:59 12:32 Chloride IVPB 250 mls 1200,2359 FELICITAS Administration Insulin Human Lispro 0 units 02/01/20 03:01 02/04/20 10:31 Humalog SC 4 unit .MODERATE SLIDING SC PRN Administration Moderate Correctional Scale Lisinopril 20 mg 02/02/20 09:00 02/04/20 08:29 Zestril PO 20 mg DAILY FELICITAS Administration Metformin HCl 1,000 mg 02/01/20 17:00 02/04/20 08:28 Glucophage PO 1,000 mg BID-WM FELICITAS Administration Morphine Sulfate 2 mg 02/03/20 14:02 02/03/20 17:24 Morphine SLOW IVP 2 mg Q1H PRN Administration Severe Pain (7-10) Pantoprazole Sodium 40 mg 02/02/20 09:00 02/04/20 08:29 Protonix PO 40 mg DAILY FELICITAS Administration Polyethylene Glycol 17 gm 02/01/20 09:00 02/04/20 08:32 Miralax PO 17 gm DAILY FELICITAS Administration Sodium Chloride 10 ml 02/01/20 03:52 02/01/20 21:06 Flush - Normal Saline IVF 10 ml PRN PRN Administration Saline Flush - Exam General Appearance: NAD, awake alert Eye: PERRL, anicteric sclera ENT: normocephalic atraumatic, no oropharyngeal lesions ENT - other findings: neck collar on Neck: no JVD Heart: RRR, no murmur, no gallops, no rubs Respiratory: CTAB, no wheezes, no rales, no ronchi Gastrointestinal: soft, non-tender, non-distended, normal bowel sounds Gastrointestinal - other findings: cooney catheter Extremities: no cyanosis, no clubbing, no edema Skin: normal turgor, no lesions, no rashes Neurological: cranial nerve grossly intact, normal sensation to touch, no weakness, no new deficit Neurological - other findings: RLE weakness, patient unable to lift it up. Dec sensation right leg Hosp A/P - Plan MRI cervical spine: Cord compression due to disc complex at C4-C5 with spinal canal measuring 405 mm. High grade T2 signal from C4 to C5 with anterior cord enhancement C4-C5. Severe neural foraminal narrowing due to disc osteophyte complexes. Increased fluid signal of upper cervical cord at C2 and C3. Small focal area of enhancement within anterior cord at C4-C5. Laminectomy change at C4-C6. MRI lumbar spine: congenitallly shortened pedicales with congenitally narrowed spinal canal. Disc desiccation and disc bulges at lower lumbar spine with multilevel neural foraminal narrowing CT cervical spine: multilevel DGD with disc osteophyte complexse greatest at C5 with mass effect on anterior aspect of spinal cord with flattening of the anterior aspect of spinal cord MRI thoracic spine: abnormal lower cervical cord enlargement with low grade minimal enhancement Chest x ray: negative THis is a 54 year old male with past medical history of transverse myelitis who presented with recurrent falls, found to have cervical spinal cord compression and cauda equina s/p lumbar laminectomy and cervical decompression of spinal cord #Cervical myelopathy with cord compression s/p anterior diskectomy and placement of interbody spacers/fusion/cervical plate and screw fixation #Cauda equina with lumbar stenosis s/p laminectomy L3-L5 and partial facetectomies - currently POD1 - continue with physical therapy #SIRS - 100.1, WBC 13.2, will obtain chest Xray - continue IV vancomycin and cefazolin - blood cultures negative. Urine culture negative #Diabetes - will increase NPH to 28 units SCqam and 23 units SC qpm - continue metformin #Neuropathy - continue gabapentin Code status: full code
--- NOTE | 2020-02-04 14:46 | RAD ---
EXAM: Portable chest PROVIDED CLINICAL HISTORY: Fever COMPARISON: 01/31/2020 FINDINGS: Cardiac and mediastinal silhouette appears enlarged, likely least partially on the basis of portable technique. No focal consolidation, pleural fluid or pneumothorax evident. Interval cervical spine postoperative change. Thin catheter type material overlies the base of the right neck and right clavi cular regions. IMPRESSION: No evidence for an acute cardiopulmonary process.
[2020-02-04] MEDS: Atorvastatin Calcium 10 MG TAB PO SCH (20:25)
[2020-02-04] MEDS ORDERED: Ibuprofen 600 MG TAB PO PRN ×2 (23:24→23:42)
[2020-02-04 23:39] LABS: Vancomycin, Trough 11.6 ug/mL
[2020-02-05] MEDS: Vancomycin HCl 1.25 GM in Sodium Chloride 0.9% 250 ML 250 ML IVPB SCH (00:26)
[2020-02-05] MEDS: Sodium Chloride 0.9% 1,000 ML IV SCH (00:26)
[2020-02-05 01:45] LABS: Bacteria/HPF None Seen HPF (None Seen); Bilirubin Negative (Negative); Blood, Urine Trace (Negative); Clarity Clear (Clear); Glucose, Urine (Dipstick) 50 mg/dL (Negative); Leukocyte Negative Leu/uL (Negative); Nitrite Negative (Negative); Protein, Urine (Dipstick) 20 mg/dL (Neg-Trace); Squamous Epithelial 0-3 HPF (0-3); Urobilinogen Normal mg/dL (Less than 2); WBC/HPF 0-3 HPF (0-3)
[2020-02-05 01:54] LABS: Sperm/HPF 4+ HPF (None Seen); Urine Culture Reflex No No
[2020-02-05 05:25] LABS: Anion Gap 16 mmol/L (10-20); BUN (Urea Nitrogen) 13 mg/dL (8.4-25.7); Calc. Creatinine Clearance 119 mL/min (70-130); Calcium 8.2 mg/dL (7.8-10.44); Carbon Dioxide 20 mmol/L (22-29); Chloride 102 mmol/L (98-107); Estimated GFR-MDRD Greater than 90; Glucose 139 mg/dL (70-105); Potassium 4.4 mmol/L (3.5-5.1); Sodium 134 mmol/L (136-145)
[2020-02-05] MEDS: CEFAZOLIN 2 GM in Premix Bag 1 BAG IVPB SCH ×3 (06:26→23:31)
[2020-02-05] MEDS: Lisinopril 10 MG TAB PO SCH (08:16)
[2020-02-05] MEDS: metFORMIN 500 MG TAB PO SCH ×2 (08:16→17:49)
[2020-02-05] MEDS: Gabapentin 300 MG CAP PO SCH ×3 (08:16→21:07)
[2020-02-05] MEDS: DULoxetine 60 MG CAP PO SCH (08:17)
[2020-02-05] MEDS: Polyethylene Glycol 3350 17 GM Packet PO SCH (08:17)
[2020-02-05] MEDS: Hydrochlorothiazide 25 MG TAB PO SCH (08:17)
[2020-02-05] MEDS: hydrALAZINE 20 MG/ML VIAL SLOW IVP PRN (08:17)
[2020-02-05] MEDS: NPH, Human Insulin Isophane 300 UNIT/3 ML VIAL SC SCH ×2 (08:18→21:08)
[2020-02-05] MEDS: Famotidine 20 MG TAB PO SCH ×2 (08:18→21:06)
[2020-02-05] MEDS: Enoxaparin Sodium 40 MG/0.4 ML SYRINGE SC SCH (08:19)
--- NOTE | 2020-02-05 08:20 | ULT ---
EXAM: Bilateral lower extremity venous ultrasound HISTORY: Malaise patient. Evaluate for edema and thrombus. COMPARISON: None TECHNIQUE: Multiplanar grayscale and color Doppler images were obtained in a bilateral lower extremit y venous ultrasound. Spectral analysis of the Doppler waveforms were performed. FINDINGS: The bilateral common femoral vein, profunda femoral veins, superficial femoral veins, and p opliteal veins are normal in appearance without visible thrombus. These vessels demonstrate normal compression, flow, and augmentation. The bilateral posterior tibial veins, profunda femoral veins and greater saphenous veins are patent w ithout evidence of DVT. IMPRESSION: No evidence of DVT in the left or right lower extremity.
[2020-02-05] MEDS: HumaLOG 300 UNITS/3 ML VIAL SC PRN (11:25)
[2020-02-05] MEDS: HYDROcodone/Acetaminophen 5/325 mg Tablet PO PRN (11:26)
[2020-02-05] MEDS: Vancomycin 1.5 GRAM/300 ML BAG 1.5 GM in Premix Bag 1 BAG IVPB SCH ×2 (11:28→23:31)
[2020-02-05 12:34] LABS: Mean Corpuscular HGB CONC 32.4 g/dL (32.0-36.0); Mean Corpuscular Hemoglobin 27.8 pg (27.0-31.0); Mean Corpuscular Volume 85.9 fL (78.0-98.0); Mean Platelet Volume 8.9 fL (7.4-10.4); Platelet Count 163 thou/uL (130-400); RBC Distribution Width 11.8 % (11.5-14.5); Red Blood Cell (RBC) Count 3.95 mill/uL (4.70-6.10); White Blood Cell (WBC) Count 17.4 thou/uL (4.8-10.8)
[2020-02-05] MEDS: Baclofen 10 MG TAB PO SCH ×3 (13:58→21:07)
--- NOTE | 2020-02-05 14:17 | RAD ---
EXAM: XR Abdomen 1 View/KUB PROVIDED CLINICAL HISTORY: Abdominal distention COMPARISON: None FINDINGS: There is generalized gaseous distention of colon and small bowel in an overall nonspecific pattern. R ectal fecal retention is demonstrated. The supine nature the study is not sensitive for detection of pneumoperitoneum. Lung bases are not included. No radiographically apparent urinary tract calculi. IMPRESSION: Nonspecific gaseous distention of colon and small bowel, possibly ileus. Moderate rectal fecal retent ion.
--- NOTE | 2020-02-05 14:37 | PDOC.HOSPP ---
- Subjective Encounter Date: 02/05/20 Encounter Time: 11:30 Subjective: THe patient states his neck pain is a little better. He is still not able to move his right leg, states that is worst from his typical baseline. He was told by neurosurgery they would try baclofen and see if that improves spasms. Per patient, there was also a plan to remove his drain Patient's belly noted to be distended. He states that he has not had a bowel movement since admission. He is eating jello and clear foods without problems - Objective Vital Signs & Weight: Vital Signs (12 hours) Temp Pulse Resp BP BP Pulse Ox 02/05/20 11:42 98.7 F 107 H 14 143/75 H 93 L 02/05/20 10:50 158/81 H 02/05/20 08:17 99 02/05/20 08:16 179/74 H 02/05/20 07:26 98.4 F 99 14 176/74 H 93 L 02/05/20 04:39 99.1 F 99 16 145/70 H 100 Weight Weight 185 lb I&O: 02/04/20 02/05/20 02/06/20 06:59 06:59 06:59 Intake Total 875 1611 Output Total 1265 2975 Balance -390 -1364 Result Diagrams: 02/05/20 11:49 02/05/20 05:02 Additional Labs: Accuchecks 02/05/20 02/05/20 02/04/20 10:35 04:49 20:47 POC Glucose 220 H 142 H 196 H 02/04/20 02/04/20 19:35 15:40 POC Glucose 204 H 220 H Hospitalist ROS - Review of Systems Constitutional: denies: fever, chills - Medication Medications: Active Medications Generic Name Dose Route Start Last Admin Trade Name Freq PRN Reason Stop Dose Admin Acetaminophen 650 mg 02/01/20 02:35 02/04/20 23:18 Tylenol PO 650 mg Q4H PRN Administration Headache/Fever/Mild Pain (1-3) Hydrocodone Bitart/Acetaminophen 1 tab 02/01/20 02:35 02/05/20 11:26 [place] 5/325 PO 1 tab Q4H PRN Administration Moderate Pain (4-6) Atorvastatin Calcium 10 mg 02/01/20 21:00 02/04/20 20:25 Lipitor PO 10 mg HS FELICITAS Administration Baclofen 5 mg 02/05/20 12:00 02/05/20 13:58 Lioresal PO 02/05/20 22:01 5 mg 1200,1700,2200 FELICITAS Administration Clonidine 0.1 mg 02/01/20 02:33 02/02/20 09:02 Catapres PO 0.1 mg BID PRN Administration SBP > 160 use second Duloxetine HCl 60 mg 02/02/20 09:00 02/05/20 08:17 Cymbalta PO 60 mg DAILY FELICITAS Administration Enoxaparin Sodium 40 mg 02/05/20 09:00 02/05/20 08:19 Lovenox SC 40 mg 0900 FELICITAS Administration Famotidine 20 mg 02/01/20 09:00 02/05/20 08:18 Pepcid PO 20 mg BID FELICITAS Administration Gabapentin 600 mg 02/01/20 15:00 02/05/20 08:16 Neurontin PO 600 mg TID FELICITAS Administration Hydralazine HCl 10 mg 02/01/20 02:33 02/05/20 08:17 Apresoline SLOW IVP 10 mg Q6H PRN Administration SBP GREATER THAN 160 Hydrochlorothiazide 25 mg 02/02/20 09:00 02/05/20 08:17 Hydrochlorothiazide PO 25 mg DAILY FELICITAS Administration Cefazolin Sodium/Dextrose 2 gm 50 mls @ 100 mls/hr 02/03/20 15:00 02/05/20 06 :26 / Device IVPB 50 mls 0700,1500,2300 FELICITAS Administration Vancomycin HCl 1.5 gm/ Device 300 mls @ 200 mls/hr 02/05/20 12:00 02/05/20 11 :28 IVPB 300 mls 1200,2359 FELICITAS Administration Insulin Human Lispro 0 units 02/01/20 03:01 02/05/20 11:25 Humalog SC 4 unit .MODERATE SLIDING SC PRN Administration Moderate Correctional Scale Insulin Human NPH 28 unit 02/05/20 09:00 02/05/20 08:18 Humulin N SC 28 unit QAM FELICITAS Administration Insulin Human NPH 23 unit 02/04/20 21:00 02/04/20 21:01 Humulin N SC 23 unit QPM FELICITAS Administration Lisinopril 20 mg 02/02/20 09:00 02/05/20 08:16 Zestril PO 20 mg DAILY FELICITAS Administration Metformin HCl 1,000 mg 02/01/20 17:00 02/05/20 08:16 Glucophage PO 1,000 mg BID-WM FELICITAS Administration Morphine Sulfate 2 mg 02/03/20 14:02 02/03/20 17:24 Morphine SLOW IVP 2 mg Q1H PRN Administration Severe Pain (7-10) Pantoprazole Sodium 40 mg 02/02/20 09:00 02/05/20 08:16 Protonix PO 40 mg DAILY FELICITAS Administration Polyethylene Glycol 17 gm 02/01/20 09:00 02/05/20 08:17 Miralax PO 17 gm DAILY FELICITAS Administration Sodium Chloride 10 ml 02/01/20 03:52 02/01/20 21:06 Flush - Normal Saline IVF 10 ml PRN PRN Administration Saline Flush - Exam General Appearance: NAD, awake alert Eye: PERRL, anicteric sclera ENT: normocephalic atraumatic, no oropharyngeal lesions ENT - other findings: dressing in place with drain with minimal output Neck: no JVD Heart: RRR, no murmur, no gallops, no rubs Respiratory: CTAB, no wheezes, no rales, no ronchi Gastrointestinal: soft Gastrointestinal - other findings: belly significantly distended, firm, hypoactive bowel sounds Extremities: no edema Skin: normal turgor, no lesions, no rashes Neurological: cranial nerve grossly intact, normal sensation to touch, no focal deficits, no new deficit Neurological - other findings: patient unable to lift up the right leg. Musculoskeletal - other findings: 5/5 strength RUE, LUE, LLE Psychiatric: normal affect, normal behavior, A&O x 3 Hosp A/P - Plan MRI cervical spine: Cord compression due to disc complex at C4-C5 with spinal canal measuring 405 mm. High grade T2 signal from C4 to C5 with anterior cord enhancement C4-C5. Severe neural foraminal narrowing due to disc osteophyte complexes. Increased fluid signal of upper cervical cord at C2 and C3. Small focal area of enhancement within anterior cord at C4-C5. Laminectomy change at C4-C6. MRI lumbar spine: congenitallly shortened pedicales with congenitally narrowed spinal canal. Disc desiccation and disc bulges at lower lumbar spine with multilevel neural foraminal narrowing CT cervical spine: multilevel DGD with disc osteophyte complexse greatest at C5 with mass effect on anterior aspect of spinal cord with flattening of the anterior aspect of spinal cord MRI thoracic spine: abnormal lower cervical cord enlargement with low grade minimal enhancement Chest x ray: negative Abd X ray 02/04: distension of colon and small bowel, possibly ileus Dopplers : no evidence of DVT THis is a 54 year old male with past medical history of transverse myelitis who presented with recurrent falls, found to have cervical spinal cord compression and cauda equina s/p lumbar laminectomy and cervical decompression of spinal cord #Cervical myelopathy with cord compression s/p anterior diskectomy and placement of interbody spacers/fusion/cervical plate and screw fixation #Cauda equina with lumbar stenosis s/p laminectomy L3-L5 and partial facetectomies - currently POD2 - continue with physical therapy - plan to have drain removed today per neurosurgery - started on baclofen for leg aspsm #SIRS -fever resolved. WBC continues to increase to 17 -he is on IV vancomycin and cefazolin. Will monitor for fevers - blood cultures negative. Urine culture negative #Diabetes - blood sugar improved to 142 this am. Will continue NPH 23 units qpm - on NPH 28 units SC qam, will monitor blood sugars for further adjustment - continue metformin #Neuropathy - continue gabapentin Code status: full code
[2020-02-05] MEDS: Atorvastatin Calcium 10 MG TAB PO SCH (21:06)
[2020-02-06] MEDS: CEFAZOLIN 2 GM in Premix Bag 1 BAG IVPB SCH (06:11)
[2020-02-06 06:20] LABS: Mean Platelet Volume 7.9 fL (7.4-10.4); Platelet Count 272 thou/uL (130-400); RBC Distribution Width 11.7 % (11.5-14.5); Red Blood Cell (RBC) Count 3.79 mill/uL (4.70-6.10); White Blood Cell (WBC) Count 16.9 thou/uL (4.8-10.8)
[2020-02-06 06:25] LABS: Sodium 128 mmol/L (136-145)
--- NOTE | 2020-02-06 07:57 | PRG ---
DATE OF SERVICE: 02/05/2020 Mr. Jara is now 2 days out from his C4-C7 ACDF and lumbar laminectomy. He is essentially neurologically the same, although, does have more feeling in his right lower extremity this morning with allodynia, as when I touch his right toes, he states he does have pain. Again, this is a dysesthetic response. His drain output is minimal. We are using gabapentin for his dysesthesias and we will initiate baclofen at 5 mg three times today and reinitiate dose at 10 mg twice a day, which is what he was on a couple of months ago before according to the patient, the medication "fell off." If he is doing well tomorrow, we will plan for discharge back to his facility. He may benefit from Baclofen increase to 15 mg BID in 3 days. Job ID: [id number] MTDD
[2020-02-06] MEDS: Enoxaparin Sodium 40 MG/0.4 ML SYRINGE SC SCH (09:03)
[2020-02-06] MEDS: metFORMIN 500 MG TAB PO SCH ×2 (09:04→17:13)
[2020-02-06] MEDS: Gabapentin 300 MG CAP PO SCH ×3 (09:05→21:45)
[2020-02-06] MEDS: Famotidine 20 MG TAB PO SCH ×2 (09:05→21:44)
[2020-02-06] MEDS: Lisinopril 10 MG TAB PO SCH (09:05)
[2020-02-06] MEDS: NPH, Human Insulin Isophane 300 UNIT/3 ML VIAL SC SCH ×2 (09:06→21:44)
[2020-02-06] MEDS: Baclofen 10 MG TAB PO SCH ×2 (09:06→21:45)
[2020-02-06] MEDS: DULoxetine 60 MG CAP PO SCH (09:06)
[2020-02-06] MEDS: Hydrochlorothiazide 25 MG TAB PO SCH (09:06)
[2020-02-06] MEDS: Polyethylene Glycol 3350 17 GM Packet PO SCH (09:07)
--- NOTE | 2020-02-06 09:24 | PRG ---
DATE OF SERVICE: 02/06/2020 SUBJECTIVE: Mr. Jara has remained afebrile last overnight. His blood sugars are under better control in the mid 120 to 160 range since yesterday afternoon. He is hyponatremic down from 134 yesterday to 128. OBJECTIVE: VITAL SIGNS: Stable. ASSESSMENT AND PLAN: We have initiated baclofen at 5 mg three times a day yesterday and today at 10 mg twice today, which was his normal dose. His wounds are healing well. His drain has been removed. I would be fine with dismissal whenever acceptable from our medical colleague's standpoint. We will arrange a set of x-rays in approximately 6 weeks. Job ID: [id number]
[2020-02-06] MEDS: HYDROcodone/Acetaminophen 5/325 mg Tablet PO PRN (09:25)
[2020-02-06] MEDS: Vancomycin 1.5 GRAM/300 ML BAG 1.5 GM in Premix Bag 1 BAG IVPB SCH (11:53)
[2020-02-06] MEDS ORDERED: Fleet Enema 133 ML BOT PR SCH (13:15)
--- NOTE | 2020-02-06 15:38 | PDOC.HOSPP ---
- Subjective Encounter Date: 02/06/20 Encounter Time: 12:00 Subjective: The patient is doing better. His drain was removed. No significant neck pain. No fever today. Per neurosurgery stable for dc from their standpoint. Patient reported still not having a bowel movement since admission, was noted to have ileus yesterday. His left leg is still weak, he got higher dose of baclofen today - Objective Vital Signs & Weight: Vital Signs (12 hours) Temp Pulse Resp BP BP Pulse Ox 02/06/20 11:14 98.7 F 96 18 151/91 H 94 L 02/06/20 09:05 129/79 02/06/20 08:00 96 02/06/20 07:24 99.5 F 97 18 129/79 96 Weight Weight 185 lb I&O: 02/05/20 02/06/20 02/07/20 06:59 06:59 06:59 Intake Total 1611 2543 Output Total 0762 4849 Balance -1364 -388 Result Diagrams: 02/06/20 05:56 02/06/20 05:56 Additional Labs: Accuchecks 02/06/20 02/05/20 02/05/20 05:35 21:09 14:43 POC Glucose 132 H 124 H 163 H Hospitalist ROS - Review of Systems Constitutional: denies: fever, chills Respiratory: denies: cough, dry, shortness of breath, pleuritic pain - Medication Medications: Active Medications Generic Name Dose Route Start Last Admin Trade Name Freq PRN Reason Stop Dose Admin Acetaminophen 650 mg 02/01/20 02:35 02/04/20 23:18 Tylenol PO 650 mg Q4H PRN Administration Headache/Fever/Mild Pain (1-3) Hydrocodone Bitart/Acetaminophen 1 tab 02/01/20 02:35 02/06/20 09:25 [place] 5/325 PO 1 tab Q4H PRN Administration Moderate Pain (4-6) Atorvastatin Calcium 10 mg 02/01/20 21:00 02/05/20 21:06 Lipitor PO 10 mg HS FELICITAS Administration Baclofen 10 mg 02/06/20 09:00 02/06/20 09:06 Lioresal PO 10 mg BID FELICITAS Administration Bisacodyl 10 mg 02/01/20 02:35 02/05/20 15:38 Dulcolax PO 10 mg DAILYPRN PRN Administration Constipation Clonidine 0.1 mg 02/01/20 02:33 02/02/20 09:02 Catapres PO 0.1 mg BID PRN Administration SBP > 160 use second Duloxetine HCl 60 mg 02/02/20 09:00 02/06/20 09:06 Cymbalta PO 60 mg DAILY FELICITAS Administration Enoxaparin Sodium 40 mg 02/05/20 09:00 02/06/20 09:03 Lovenox SC 40 mg 0900 FELICITAS Administration Famotidine 20 mg 02/01/20 09:00 02/06/20 09:05 Pepcid PO 20 mg BID FELICITAS Administration Gabapentin 600 mg 02/01/20 15:00 02/06/20 15:01 Neurontin PO 600 mg TID FELICITAS Administration Hydralazine HCl 10 mg 02/01/20 02:33 02/05/20 08:17 Apresoline SLOW IVP 10 mg Q6H PRN Administration SBP GREATER THAN 160 Insulin Human Lispro 0 units 02/01/20 03:01 02/05/20 11:25 Humalog SC 4 unit .MODERATE SLIDING SC PRN Administration Moderate Correctional Scale Insulin Human NPH 28 unit 02/05/20 09:00 02/06/20 09:06 Humulin N SC 28 unit QAM FELICITAS Administration Insulin Human NPH 23 unit 02/04/20 21:00 02/05/20 21:08 Humulin N SC 23 unit QPM FELICITAS Administration Lisinopril 20 mg 02/02/20 09:00 02/06/20 09:05 Zestril PO 20 mg DAILY FELICITAS Administration Metformin HCl 1,000 mg 02/01/20 17:00 02/06/20 09:04 Glucophage PO 1,000 mg BID-WM FELICITAS Administration Morphine Sulfate 2 mg 02/03/20 14:02 02/03/20 17:24 Morphine SLOW IVP 2 mg Q1H PRN Administration Severe Pain (7-10) Pantoprazole Sodium 40 mg 02/02/20 09:00 02/06/20 09:04 Protonix PO 40 mg DAILY FELICITAS Administration Polyethylene Glycol 17 gm 02/01/20 09:00 02/06/20 09:07 Miralax PO 17 gm DAILY FELICITAS Administration Sodium Chloride 10 ml 02/01/20 03:52 02/01/20 21:06 Flush - Normal Saline IVF 10 ml PRN PRN Administration Saline Flush - Exam General Appearance: NAD, awake alert Eye: PERRL, anicteric sclera ENT: normocephalic atraumatic, no oropharyngeal lesions Neck: supple, no JVD Heart: RRR, no murmur, no gallops, no rubs Respiratory: CTAB, no wheezes, no rales, no ronchi Gastrointestinal: soft Gastrointestinal - other findings: abdomen mildly distended Extremities: no cyanosis, no clubbing, no edema Skin: normal turgor, no lesions, no rashes Hosp A/P - Plan MRI cervical spine: Cord compression due to disc complex at C4-C5 with spinal canal measuring 405 mm. High grade T2 signal from C4 to C5 with anterior cord enhancement C4-C5. Severe neural foraminal narrowing due to disc osteophyte complexes. Increased fluid signal of upper cervical cord at C2 and C3. Small focal area of enhancement within anterior cord at C4-C5. Laminectomy change at C4-C6. MRI lumbar spine: congenitallly shortened pedicales with congenitally narrowed spinal canal. Disc desiccation and disc bulges at lower lumbar spine with multilevel neural foraminal narrowing CT cervical spine: multilevel DGD with disc osteophyte complexse greatest at C5 with mass effect on anterior aspect of spinal cord with flattening of the anterior aspect of spinal cord MRI thoracic spine: abnormal lower cervical cord enlargement with low grade minimal enhancement Chest x ray: negative Abd X ray 02/04: distension of colon and small bowel, possibly ileus Dopplers : no evidence of DVT THis is a 54 year old male with past medical history of transverse myelitis who presented with recurrent falls, found to have cervical spinal cord compression and cauda equina s/p lumbar laminectomy and cervical decompression of spinal cord #Cervical myelopathy with cord compression s/p anterior diskectomy and placement of interbody spacers/fusion/cervical plate and screw fixation #Cauda equina with lumbar stenosis s/p laminectomy L3-L5 and partial facetectomies - currently POD3, s/p drain removal - continue with physical therapy - baclofen 10 mg started today x 3 days, then increase to 15 mg bid Hyponatremia - sodium 128, appears to be euvolemic - will repeat sodium tomorrow Ileus - administered enema today. Advance diet to soft diet and repeat abd Xray in am #SIRS -fever resolved. WBC down to 16.9 - blood cultures negative - per neurosurgery likely from atelectasis. WIll discontinue antibiotics and monitor for fever #Diabetes - blood sugar controlled - continue NPH 28 units SC qam, and 23 units QHS #Neuropathy - continue gabapentin Dispo: likely d/c tomorrow Code status: full code
[2020-02-06] MEDS: Atorvastatin Calcium 10 MG TAB PO SCH (21:45)
[2020-02-07 05:49] LABS: Mean Corpuscular HGB CONC 33.1 g/dL (32.0-36.0); Mean Corpuscular Hemoglobin 28.8 pg (27.0-31.0); Mean Corpuscular Volume 86.9 fL (78.0-98.0); Mean Platelet Volume 7.9 fL (7.4-10.4); Platelet Count 367 thou/uL (130-400); RBC Distribution Width 11.7 % (11.5-14.5); Red Blood Cell (RBC) Count 3.81 mill/uL (4.70-6.10); White Blood Cell (WBC) Count 10.7 thou/uL (4.8-10.8)
[2020-02-07 06:01] LABS: Anion Gap 13 mmol/L (10-20); BUN (Urea Nitrogen) 19 mg/dL (8.4-25.7); Calc. Creatinine Clearance 115 mL/min (70-130); Calcium 8.8 mg/dL (7.8-10.44); Carbon Dioxide 24 mmol/L (22-29); Chloride 98 mmol/L (98-107); Estimated GFR-MDRD Greater than 90; Glucose 146 mg/dL (70-105); Potassium 3.9 mmol/L (3.5-5.1); Sodium 131 mmol/L (136-145)
[2020-02-07] MEDS: metFORMIN 500 MG TAB PO SCH ×2 (09:31→16:59)
[2020-02-07] MEDS: Gabapentin 300 MG CAP PO SCH ×3 (09:32→20:40)
[2020-02-07] MEDS: Famotidine 20 MG TAB PO SCH ×2 (09:32→20:39)
[2020-02-07] MEDS: Lisinopril 10 MG TAB PO SCH (09:33)
[2020-02-07] MEDS: Enoxaparin Sodium 40 MG/0.4 ML SYRINGE SC SCH (09:34)
[2020-02-07] MEDS: DULoxetine 60 MG CAP PO SCH (09:34)
[2020-02-07] MEDS: Baclofen 10 MG TAB PO SCH ×2 (09:34→20:39)
[2020-02-07] MEDS: NPH, Human Insulin Isophane 300 UNIT/3 ML VIAL SC SCH ×2 (09:38→20:39)
[2020-02-07] MEDS: Polyethylene Glycol 3350 17 GM Packet PO SCH (09:39)
--- NOTE | 2020-02-07 15:21 | RAD ---
EXAM: ABDOMEN ONE VIEW: 02/07/20 HISTORY: Abdominal distention, possible ileus. COMPARISON: 02/05/20. FINDINGS: There is persistent distention and mild dilatation of large and small bowel showing no significant ch adry from the prior study. There is some fecal material in the rectum. IMPRESSION: Little change in the appearance of the abdomen with distended and mildly dilated large and small aniket l. POS: [facility]
[2020-02-07] MEDS: HumaLOG 300 UNITS/3 ML VIAL SC PRN (16:59)
--- NOTE | 2020-02-07 19:04 | PDOC.HOSPP ---
- Subjective Encounter Date: 02/07/20 Encounter Time: 15:00 Subjective: The patient has no complaints. He had two BM yesterday and one this morning. He received miralax this morning. Repeat X ray still shows ileus Currently awaiting bed at the [facility] - Objective Vital Signs & Weight: Vital Signs (12 hours) Temp Pulse Resp BP BP Pulse Ox 02/07/20 15:23 98.3 F 97 16 129/81 97 02/07/20 10:40 98.6 F 95 18 99/63 96 02/07/20 09:33 122/86 02/07/20 08:00 96 02/07/20 07:38 98.7 F 90 18 122/86 96 Weight Weight 185 lb I&O: 02/06/20 02/07/20 02/08/20 06:59 06:59 06:59 Intake Total 2543 2080 920 Output Total 2805 3650 600 Balance -262 -1570 320 Result Diagrams: 02/07/20 05:14 02/07/20 05:14 Additional Labs: Accuchecks 02/07/20 02/07/20 02/07/20 15:32 10:44 05:44 POC Glucose 188 H 251 H 146 H 02/06/20 21:03 POC Glucose 208 H Hospitalist ROS - Review of Systems Constitutional: denies: fever, chills Respiratory: denies: cough, dry - Medication Medications: Active Medications Generic Name Dose Route Start Last Admin Trade Name Freq PRN Reason Stop Dose Admin Acetaminophen 650 mg 02/01/20 02:35 02/04/20 23:18 Tylenol PO 650 mg Q4H PRN Administration Headache/Fever/Mild Pain (1-3) Hydrocodone Bitart/Acetaminophen 1 tab 02/01/20 02:35 02/06/20 09:25 Guys 5/325 PO 1 tab Q4H PRN Administration Moderate Pain (4-6) Atorvastatin Calcium 10 mg 02/01/20 21:00 02/06/20 21:45 Lipitor PO 10 mg HS FELICITAS Administration Bisacodyl 10 mg 02/01/20 02:35 02/05/20 15:38 Dulcolax PO 10 mg DAILYPRN PRN Administration Constipation Clonidine 0.1 mg 02/01/20 02:33 02/02/20 09:02 Catapres PO 0.1 mg BID PRN Administration SBP > 160 use second Duloxetine HCl 60 mg 02/02/20 09:00 02/07/20 09:34 Cymbalta PO 60 mg DAILY FELICITAS Administration Enoxaparin Sodium 40 mg 02/05/20 09:00 02/07/20 09:34 Lovenox SC 40 mg 0900 FELICITAS Administration Famotidine 20 mg 02/01/20 09:00 02/07/20 09:32 Pepcid PO 20 mg BID FELICITAS Administration Gabapentin 600 mg 02/01/20 15:00 02/07/20 15:11 Neurontin PO 600 mg TID FELICITAS Administration Hydralazine HCl 10 mg 02/01/20 02:33 02/05/20 08:17 Apresoline SLOW IVP 10 mg Q6H PRN Administration SBP GREATER THAN 160 Insulin Human Lispro 0 units 02/01/20 03:01 02/07/20 16:59 Humalog SC 2 unit .MODERATE SLIDING SC PRN Administration Moderate Correctional Scale Insulin Human NPH 28 unit 02/05/20 09:00 02/07/20 09:38 Humulin N SC 28 unit QAM FELICITAS Administration Insulin Human NPH 23 unit 02/04/20 21:00 02/06/20 21:44 Humulin N SC 23 unit QPM FELICITAS Administration Lisinopril 20 mg 02/02/20 09:00 02/07/20 09:33 Zestril PO 20 mg DAILY FELICITAS Administration Metformin HCl 1,000 mg 02/01/20 17:00 02/07/20 16:59 Glucophage PO 1,000 mg BID-WM FELICITAS Administration Morphine Sulfate 2 mg 02/03/20 14:02 02/03/20 17:24 Morphine SLOW IVP 2 mg Q1H PRN Administration Severe Pain (7-10) Pantoprazole Sodium 40 mg 02/02/20 09:00 02/07/20 09:33 Protonix PO 40 mg DAILY FELICITAS Administration Polyethylene Glycol 17 gm 02/01/20 09:00 02/07/20 09:39 Miralax PO 17 gm DAILY FELICITAS Administration Sodium Chloride 10 ml 02/01/20 03:52 02/01/20 21:06 Flush - Normal Saline IVF 10 ml PRN PRN Administration Saline Flush - Exam General Appearance: NAD, awake alert Eye: PERRL, anicteric sclera ENT: normocephalic atraumatic, no oropharyngeal lesions Neck: supple, symmetric, no JVD Heart: RRR, no murmur, no gallops, no rubs Respiratory: CTAB, no wheezes, no rales, no ronchi Gastrointestinal: soft, diminished bowl sounds Gastrointestinal - other findings: abdomen mildly distended Extremities: no cyanosis, no clubbing, no edema Skin: normal turgor, no lesions, no rashes Neurological - other findings: RLE weakness . 2/5 strength RLE. 5/5 other extremities Psychiatric: normal affect, normal behavior, A&O x 3 Hosp A/P - Plan MRI cervical spine: Cord compression due to disc complex at C4-C5 with spinal canal measuring 405 mm. High grade T2 signal from C4 to C5 with anterior cord enhancement C4-C5. Severe neural foraminal narrowing due to disc osteophyte complexes. Increased fluid signal of upper cervical cord at C2 and C3. Small focal area of enhancement within anterior cord at C4-C5. Laminectomy change at C4-C6. MRI lumbar spine: congenitallly shortened pedicales with congenitally narrowed spinal canal. Disc desiccation and disc bulges at lower lumbar spine with multilevel neural foraminal narrowing CT cervical spine: multilevel DGD with disc osteophyte complexse greatest at C5 with mass effect on anterior aspect of spinal cord with flattening of the anterior aspect of spinal cord MRI thoracic spine: abnormal lower cervical cord enlargement with low grade minimal enhancement Chest x ray: negative Abd X ray 02/04: distension of colon and small bowel, possibly ileus Dopplers : no evidence of DVT Abd X ray 02/06: mildly dilated large and small bowel THis is a 54 year old male with past medical history of transverse myelitis who presented with recurrent falls, found to have cervical spinal cord compression and cauda equina s/p lumbar laminectomy and cervical decompression of spinal cord #Cervical myelopathy with cord compression s/p anterior diskectomy and placement of interbody spacers/fusion/cervical plate and screw fixation #Cauda equina with lumbar stenosis s/p laminectomy L3-L5 and partial facetectomies - currently POD4, s/p drain removal - continue with physical therapy - baclofen 10 mg started today x 3 days. Increase to 15 mg bid today due to persistent RLE weakness Hyponatremia - improving up to 131. Euvolemic hyponatremia. will montior Ileus - patient has had three bowel movements. Repeat X ray today still shows ileus. Will recheck tomorrow #SIRS -fever resolved. Cultures negative - antibiotics discontinued #Diabetes - blood sugar controlled - continue NPH 28 units SC qam, and 23 units QHS #Neuropathy - continue gabapentin Dispo: d/c pending bed Code status: full code
[2020-02-07] MEDS: Atorvastatin Calcium 10 MG TAB PO SCH (20:40)
[2020-02-08] MEDS: hydrALAZINE 20 MG/ML VIAL SLOW IVP PRN (04:07)
[2020-02-08] MEDS: Baclofen 10 MG TAB PO SCH ×2 (09:06→21:04)
[2020-02-08] MEDS: Polyethylene Glycol 3350 17 GM Packet PO SCH (09:07)
[2020-02-08] MEDS: DULoxetine 60 MG CAP PO SCH (09:07)
[2020-02-08] MEDS: Gabapentin 300 MG CAP PO SCH ×3 (09:07→21:03)
[2020-02-08] MEDS: metFORMIN 500 MG TAB PO SCH ×2 (09:07→16:39)
[2020-02-08] MEDS: Lisinopril 10 MG TAB PO SCH (09:08)
[2020-02-08] MEDS: Enoxaparin Sodium 40 MG/0.4 ML SYRINGE SC SCH (09:08)
[2020-02-08] MEDS: Famotidine 20 MG TAB PO SCH ×2 (09:08→21:05)
--- NOTE | 2020-02-08 09:14 | RAD ---
SUPINE ABDOMEN: History: Ileus. Comparison: 02-07-20 FINDINGS: There continues to be gas filled dilated loops of small bowel. Scattered gas throughout the colon. Th e colon distention has decreased since yesterday. IMPRESSION: Persistent gas filled dilated loops of small bowel imitating persist ileus and/or obstruction. POS: [facility]
[2020-02-08] MEDS: NPH, Human Insulin Isophane 300 UNIT/3 ML VIAL SC SCH ×2 (09:16→21:06)
[2020-02-08 13:07] LABS: Anion Gap 16 mmol/L (10-20); BUN (Urea Nitrogen) 22 mg/dL (8.4-25.7); Calc. Creatinine Clearance 113 mL/min (70-130); Calcium 8.9 mg/dL (7.8-10.44); Carbon Dioxide 21 mmol/L (22-29); Chloride 99 mmol/L (98-107); Estimated GFR-MDRD Greater than 90; Glucose 163 mg/dL (70-105); Potassium 4.2 mmol/L (3.5-5.1); Sodium 132 mmol/L (136-145)
[2020-02-08] MEDS: Atorvastatin Calcium 10 MG TAB PO SCH (21:04)
[2020-02-08] MEDS: HumaLOG 300 UNITS/3 ML VIAL SC PRN (21:06)
[2020-02-09] MEDS: DULoxetine 60 MG CAP PO SCH (08:38)
[2020-02-09] MEDS: metFORMIN 500 MG TAB PO SCH ×2 (08:38→17:21)
[2020-02-09] MEDS: Baclofen 10 MG TAB PO SCH ×2 (08:39→20:46)
[2020-02-09] MEDS: Gabapentin 300 MG CAP PO SCH ×3 (08:39→20:47)
[2020-02-09] MEDS: Famotidine 20 MG TAB PO SCH ×2 (08:39→20:47)
[2020-02-09] MEDS: Lisinopril 10 MG TAB PO SCH (08:39)
[2020-02-09] MEDS: Enoxaparin Sodium 40 MG/0.4 ML SYRINGE SC SCH (08:40)
[2020-02-09] MEDS: NPH, Human Insulin Isophane 300 UNIT/3 ML VIAL SC SCH ×2 (08:40→20:48)
[2020-02-09] MEDS: Polyethylene Glycol 3350 17 GM Packet PO SCH (08:41)
--- NOTE | 2020-02-09 09:53 | PDOC.HOSPP ---
- Subjective Encounter Date: 02/08/20 Encounter Time: 11:00 Subjective: LATE ENTRY NOTE Patient was supposed to be discharged 02/07 however still in the hospital. On patient had complained of excessive twitching from the higher dose of baclofen 15 mg. Per neurosurgery this could mean his body is starting to wake up. He had a bowel movement in the morning. Repeat Xray still showed ileus Patient worked with [employer] and reported excessive fatigue from that - Objective Vital Signs & Weight: Vital Signs (12 hours) Temp Pulse Resp BP Pulse Ox 02/09/20 07:21 98.7 F 77 16 127/75 95 02/09/20 04:00 98.3 F 86 18 137/87 96 02/09/20 00:31 98.3 F 90 18 106/68 94 L Weight Weight 185 lb I&O: 02/08/20 02/09/20 02/10/20 06:59 06:59 06:59 Intake Total 1170 Output Total 825 Balance 345 Result Diagrams: 02/07/20 05:02/08/20 12:29 Additional Labs: Accuchecks 02/09/20 02/08/20 02/08/20 05:33 20:25 15:32 POC Glucose 82 160 H 133 H 02/08/20 02/03/20 10:46 06:59 POC Glucose 202 H 210 H Hospitalist ROS - Review of Systems Constitutional: denies: fever, chills - Medication Medications: Active Medications Generic Name Dose Route Start Last Admin Trade Name Freq PRN Reason Stop Dose Admin Acetaminophen 650 mg 02/01/20 02:35 02/04/20 23:18 Tylenol PO 650 mg Q4H PRN Administration Headache/Fever/Mild Pain (1-3) Hydrocodone Bitart/Acetaminophen 1 tab 02/01/20 02:35 02/06/20 09:25 [place] 5/325 PO 1 tab Q4H PRN Administration Moderate Pain (4-6) Atorvastatin Calcium 10 mg 02/01/20 21:00 02/08/20 21:04 Lipitor PO 10 mg HS FELICITAS Administration Baclofen 15 mg 02/07/20 21:00 02/09/20 08:39 Lioresal PO 15 mg BID FELICITAS Administration Bisacodyl 10 mg 02/01/20 02:35 02/05/20 15:38 Dulcolax PO 10 mg DAILYPRN PRN Administration Constipation Clonidine 0.1 mg 02/01/20 02:33 02/02/20 09:02 Catapres PO 0.1 mg BID PRN Administration SBP > 160 use second Duloxetine HCl 60 mg 02/02/20 09:00 02/09/20 08:38 Cymbalta PO 60 mg DAILY FELICITAS Administration Enoxaparin Sodium 40 mg 02/05/20 09:00 02/09/20 08:40 Lovenox SC 40 mg 0900 FELICITAS Administration Famotidine 20 mg 02/01/20 09:00 02/09/20 08:39 Pepcid PO 20 mg BID FELICITAS Administration Gabapentin 600 mg 02/01/20 15:00 02/09/20 08:39 Neurontin PO 600 mg TID FELICITAS Administration Hydralazine HCl 10 mg 02/01/20 02:33 02/08/20 04:07 Apresoline SLOW IVP 10 mg Q6H PRN Administration SBP GREATER THAN 160 Insulin Human Lispro 0 units 02/01/20 03:01 02/08/20 21:06 Humalog SC 2 unit .MODERATE SLIDING SC PRN Administration Moderate Correctional Scale Insulin Human NPH 28 unit 02/05/20 09:00 02/09/20 08:40 Humulin N SC 28 unit QAM FELICITAS Administration Insulin Human NPH 23 unit 02/04/20 21:00 02/08/20 21:06 Humulin N SC 23 unit QPM FELICITAS Administration Lisinopril 20 mg 02/02/20 09:00 02/09/20 08:39 Zestril PO 20 mg DAILY FELICITAS Administration Metformin HCl 1,000 mg 02/01/20 17:00 02/09/20 08:38 Glucophage PO 1,000 mg BID-WM FELICITAS Administration Morphine Sulfate 2 mg 02/03/20 14:02 02/03/20 17:24 Morphine SLOW IVP 2 mg Q1H PRN Administration Severe Pain (7-10) Pantoprazole Sodium 40 mg 02/02/20 09:00 02/09/20 08:39 Protonix PO 40 mg DAILY FELICITAS Administration Polyethylene Glycol 17 gm 02/01/20 09:00 02/09/20 08:41 Miralax PO Not Given DAILY FELICITAS Sodium Chloride 10 ml 02/01/20 03:52 02/01/20 21:06 Flush - Normal Saline IVF 10 ml PRN PRN Administration Saline Flush Tizanidine HCl 4 mg 02/03/20 14:02 02/07/20 22:19 Zanaflex PO 4 mg TIDPRN PRN Administration Muscle Spasm - Exam General Appearance: NAD, awake alert Eye: PERRL, anicteric sclera ENT: normocephalic atraumatic, no oropharyngeal lesions Neck: no JVD Heart: RRR, no murmur, no gallops, no rubs Respiratory: CTAB, no wheezes, no rales, no ronchi Gastrointestinal: soft, non-tender, normal bowel sounds Gastrointestinal - other findings: distended Extremities: no cyanosis, no clubbing, no edema Skin: normal turgor, no lesions, no rashes Neurological: cranial nerve grossly intact, normal sensation to touch, no focal deficits, no new deficit Hosp A/P - Plan MRI cervical spine: Cord compression due to disc complex at C4-C5 with spinal canal measuring 405 mm. High grade T2 signal from C4 to C5 with anterior cord enhancement C4-C5. Severe neural foraminal narrowing due to disc osteophyte complexes. Increased fluid signal of upper cervical cord at C2 and C3. Small focal area of enhancement within anterior cord at C4-C5. Laminectomy change at C4-C6. MRI lumbar spine: congenitallly shortened pedicales with congenitally narrowed spinal canal. Disc desiccation and disc bulges at lower lumbar spine with multilevel neural foraminal narrowing CT cervical spine: multilevel DGD with disc osteophyte complexse greatest at C5 with mass effect on anterior aspect of spinal cord with flattening of the anterior aspect of spinal cord MRI thoracic spine: abnormal lower cervical cord enlargement with low grade minimal enhancement Chest x ray: negative Abd X ray 02/04: distension of colon and small bowel, possibly ileus Dopplers : no evidence of DVT Abd X ray 02/06: mildly dilated large and small bowel THis is a 54 year old male with past medical history of transverse myelitis who presented with recurrent falls, found to have cervical spinal cord compression and cauda equina s/p lumbar laminectomy and cervical decompression of spinal cord #Cervical myelopathy with cord compression s/p anterior diskectomy and placement of interbody spacers/fusion/cervical plate and screw fixation #Cauda equina with lumbar stenosis s/p laminectomy L3-L5 and partial facetectomies - currently POD5, s/p drain removal - continue with physical therapy - baclofen was increased to 15 mg bid. Continue current dosing Hyponatremia - improved to 132. Euvolemic hyponatremia. will montior Ileus - patient has had three bowel movements. Repeat X ray today still shows ileus. #SIRS -fever resolved. Cultures negative - antibiotics discontinued #Diabetes - blood sugar controlled - continue NPH 28 units SC qam, and 23 units QHS #Neuropathy - continue gabapentin Dispo: d/c pending bed Code status: full code
[2020-02-09] MEDS: HumaLOG 300 UNITS/3 ML VIAL SC PRN ×2 (12:54→17:26)
[2020-02-09 14:24] LABS: Hemoglobin 11.3 g/dL (14.0-18.0); Mean Corpuscular HGB CONC 33.1 g/dL (32.0-36.0); Mean Corpuscular Hemoglobin 28.6 pg (27.0-31.0); Mean Corpuscular Volume 86.5 fL (78.0-98.0); Mean Platelet Volume 7.3 fL (7.4-10.4); Platelet Count 445 thou/uL (130-400); RBC Distribution Width 11.6 % (11.5-14.5); Red Blood Cell (RBC) Count 3.95 mill/uL (4.70-6.10); White Blood Cell (WBC) Count 10.6 thou/uL (4.8-10.8)
[2020-02-09 14:45] LABS: Anion Gap 15 mmol/L (10-20); BUN (Urea Nitrogen) 21 mg/dL (8.4-25.7); Calc. Creatinine Clearance 114 mL/min (70-130); Calcium 8.6 mg/dL (7.8-10.44); Carbon Dioxide 21 mmol/L (22-29); Chloride 100 mmol/L (98-107); Estimated GFR-MDRD Greater than 90; Glucose 157 mg/dL (70-105); Potassium 4.2 mmol/L (3.5-5.1); Sodium 132 mmol/L (136-145)
--- NOTE | 2020-02-09 15:48 | EKG ---
Test Reason : SOB Blood Pressure : / mmHG Vent. Rate : 091 BPM Atrial Rate : 091 BPM P-R Int : 158 ms QRS Dur : 080 ms QT Int : 332 ms P-R-T Axes : -02 081 042 degrees QTc Int : 408 ms Normal sinus rhythm Normal ECG Confirmed by PRIMO ALBARADO DO ([id number]), tape editor ZARINA WHEAT ([id number] on 02/09/2020 3:47:35 PM Referred By: PER Confirmed By:PRIMO ALBARADO DO
--- NOTE | 2020-02-09 15:51 | RAD ---
SUPINE ABDOMEN: HISTORY: Ileus. COMPARISON: 02/08/2020. FINDINGS/IMPRESSION: Diffuse gaseous distention of the colon. Scattered small bowel gas without evidence of significant s mall bowel distention or dilatation. POS: [facility]
--- NOTE | 2020-02-09 16:10 | CT ---
CT BRAIN WITHOUT CONTRAST: HISTORY: Right lower extremity weakness. FINDINGS: There are no previous exams for comparison. No evidence of acute infarct, hemorrhage, midline shift, or abnormal extraaxial fluid collections are seen. The ventricular size is appropriate and the basilar cisterns are patent. The bony calvarium is intact. There is mild mucosal disease in the paranasal sinuses. IMPRESSION: No CT evidence of acute intracranial process. POS: [facility]
[2020-02-09] MEDS ORDERED: Fleet Enema 133 ML BOT PR SCH (17:00)
[2020-02-09 19:25] VITALS: BP 109/73; TEMP 98.9
[2020-02-09] MEDS: Atorvastatin Calcium 10 MG TAB PO SCH (20:48)
[2020-02-09] MEDS ORDERED: Senokot S 8.6-50 MG TAB PO SCH (21:00)
[2020-02-09] MEDS ORDERED: Polyethylene Glycol 3350 17 GM Packet PO SCH (21:00)
--- NOTE | 2020-02-10 06:31 | DIS ---
DATE OF ADMISSION: 02/01/2020 DATE OF DISCHARGE: 02/09/2020 DISCHARGE DIAGNOSES: 1. Cervical myelopathy with cord compression, status post anterior diskectomy and placement of interbody spacers/fusion/cervical plate and screw fixation. 2. Cauda equina with lumbar stenosis status post laminectomy L3-L5 and partial facetectomy. 3. Hyponatremia. 4. Systemic inflammatory response syndrome. 5. Ileus. 6. Diabetes. 7. Neuropathy. HISTORY OF PRESENT ILLNESS: This is a 54-year-old male patient with a past medical history of transverse myelitis for the past 10 years, who had presented to the emergency room with inability to ambulate and recurrent falls. The patient states he was diagnosed with a UTI three weeks prior and had a temperature of 103, and presented to the emergency room for further evaluation. The patient had an MRI of his cervical spine in the emergency room, which showed cord compression at C4- C5 and congenitally narrowed spinal canal in the lumbar spine as well. MRI of his thoracic spine showed incompletely evaluated lower cervical cord enlargement with possible transverse myelitis. Neurosurgery was consulted and the patient was admitted to the emergency room for further workup. HOSPITAL COURSE: Cervical myelopathy secondary to cervical stenosis and cauda equina with lumbar stenosis: The patient underwent C4-C5, C5-C6 and C6-C7 anterior diskectomies for decompression of spinal cord and nerve roots. He had placement of an interbody spacer packed with local bone autograft between C4-C7 with interbody fusion from C4-C7 and anterior cervical plate and screw fixation. He also had lumbar laminectomy done from L3-L5 with partial facetectomies. The patient had blood cultures on the , which were negative. His urine culture showed 10, 000 to 25,000 mixed skin and enteric minerva. He was treated with vancomycin and cefazolin empirically. This was eventually discontinued. On postop day 4, he had his drains removed. He was seen by Physical Therapy. He was started on baclofen 10 mg daily for muscle spasms. This was increased to 15 mg twice daily on 02/06. The patient states that he had increased muscle twitching with this higher dose but improved on the day of discharge. Per Neurosurgery, this may just be secondary to the fact that his body is just starting to wake up. On discharge, he does have persistent right lower extremity weakness. He should continue with physical therapy and will be transferred to a hospital bed at [facility]. He will need repeat cervical Xrays , PA/lateral and swimmers view in 6 weeks and f/u with Dr. Russo Hyponatremia: The patient had a sodium level of 132 on the day of discharge. This is actually improved from a low of 128 on 02/05. Serum osmolarity and urine osmolarity were normal. His hydrochlorothiazide was discontinued on discharge. SIRS: The patient was noted to have fevers of 100. Chest X ray, urine culture and blood cultures were normal. Dopplers were negative for DVT. He was treated with vancomycin and cefazolin, and antibiotics were discontinued on the . He spiked no further fevers. Diabetes: The patient was noted to have elevated blood sugars to 200 to 250s. His NPH was increased to 28 units subcu q.a.m. and 23 units subcu at bedtime. Ileus: The patient was noted to have some abdominal distention. Abdominal x- rays show distention of colon and small bowel. He was started on MiraLAX and suppositories. He did have a bowel movement on the day of discharge. He is tolerating a regular diet on the day of discharge with no nausea or vomiting. He can have serial x-rays done at the [facility] as needed. DISCHARGE PHYSICAL EXAMINATION: VITAL SIGNS: Temperature 99.4, HR 104, RR 16, O2 saturation 96% on room air, BP 125/78. GENERAL: The patient is alert, awake, and oriented x3. NEURO: The patient's cranial nerves 2 through 12 are intact. He has 4/5 strength in his upper extremities. He has 0/5 strength in his right lower extremity. 2 to 3/5 strength in the left lower extremity. He has decreased range of motion of his left lower extremity. He is unable to lift up his right leg. He has subjective decreased sensation in the right leg. ENT: The patient has a gauze dressing on his right side of his neck. CVS: Regular rate and rhythm with no murmurs, rubs, or gallops. LUNGS: Clear to auscultation bilaterally. ABDOMEN: The patient's abdomen is slightly distended, however soft. He has slightly diminished bowel sounds. EXTREMITIES: No edema. PERTINENT LABORATORY DATA: CBC 02/06: White blood cell count 10.7, hemoglobin 11.0, hematocrit 33.1, platelet count 367. BMP 02/07: Sodium is 132, potassium 4.2, chloride 99, bicarb 21, BUN 22, creatinine 0.90. Calcium: 8.9. LFTs: AST 22, ALT 19, alkaline phosphatase 93. Troponin I: Less than 0.010. UA 02/04: Shows trace blood, 4 to 6 rbc's, 0 to 3 white blood cells, negative nitrite. Urine culture: Normal. Urine osmolarity: 42. Serum osmolarity: 284. COVID PCR 01/30: Negative. IMAGING: Cervical spine MRI 01/30: Multilevel severe neural foraminal narrowing and facet arthrosis. Abnormally increased fluid signal in the upper cervical cord at C2 and C3 with some volume loss and mild myelomalacia. Focal area of enhancement within C4-C5. High-grade T2 signal from C4-C6 corresponding to transverse myelitis. There is also cord compression just above this level at C4-C5. MRI lumbar spine 01/30: Congenitally foreshortened pedicles with congenitally narrowed spinal canal. Disc desiccation and bulges greatest at L4-L5. Thoracic spine MRI 01/30: Shows lower cervical cord enlargement with low-grade minimal enhancement seen with transverse myelitis. No diskitis or osteomyelitis. Chest x-ray 01/30: No acute disease. CT cervical spine 01/31: Postop changes from laminectomy defects from C4-C6. Multilevel degenerative changes greatest at C4-C5, where there is mass effect on the anterior aspect of the spinal cord with flattening of the anterior aspect of the spinal cord. Chest x-ray 02/03: No acute disease. Venogram 02/04: No evidence of DVT. Abdominal x-ray 02/04: Nonspecific gaseous distention of the colon and small bowel, possibly ileus. Moderate fecal retention. Abdominal x-ray 02/06: Distended and mildly dilated large and small bowel. Abdominal x-ray 02/07: Persistent gas-filled dilated loops of small bowel imitating persistent ileus and/or obstruction. DISCHARGE CONDITION: Stable for discharge to [facility]. ACTIVITY: The patient needs PT on a daily basis at the [facility]. DIET: Diabetic diet. DISCHARGE MEDICATIONS: New prescriptions: 1. Baclofen 15 mg p.o. b.i.d. 2. NPH 28 units subcu q.a.m. and 23 units subcu q.p.m. 3. MiraLAX 17 g p.o. daily p.r.n. 4. Zanaflex 4 mg p.o. t.i.d. p.r.n. All other home medications were resumed. Discontinued medications: Hydrochlorothiazide. DISCHARGE INSTRUCTIONS: The patient needs to stop his hydrochlorothiazide. He will need repeat upright cervical AP and lateral and swimmer's view x-rays in 6 weeks and follow up with Dr. Russo. Job ID: [id number]
== END 2020-02-09 21:40 | disposition short-term general hospital (02) | DRG 472 ==
LOC: ERS 18:18 → T4-B 02-01 01:47 → EEVIPCON 02-01 01:47 → SURG A 02-03 14:22
PROVIDERS: ADMIT Internal Medicine; ATTEND Internal Medicine
PROC: 0RG20A0 Fusion of 2 or more Cervical Vertebral Joints with Interbody Fusion Device, Anterior Approach, Anterior Column, Open Approach (ICD-10-PCS; principal; 2020-02-03)
PROC: 00NW0ZZ Release Cervical Spinal Cord, Open Approach (ICD-10-PCS; 2020-02-03)
PROC: 01N10ZZ Release Cervical Nerve, Open Approach (ICD-10-PCS; 2020-02-03)
PROC: 01NB0ZZ Release Lumbar Nerve, Open Approach (ICD-10-PCS; 2020-02-03)
PROC: 0RB30ZZ Excision of Cervical Vertebral Disc, Open Approach (ICD-10-PCS; 2020-02-03)
DX: M48.02 Spinal stenosis, cervical region (principal); M50.022 Cervical disc disorder at C5-C6 level with myelopathy; G37.3 Acute transverse myelitis in demyelinating disease of central nervous system; G95.29 Other cord compression; M50.023 Cervical disc disorder at C6-C7 level with myelopathy; G83.4 Cauda equina syndrome; R65.10 Systemic inflammatory response syndrome (SIRS) of non-infectious origin without acute organ dysfunction; E87.1 Hypo-osmolality and hyponatremia; K56.7 Ileus, unspecified; J98.11 Atelectasis; G83.31 Monoplegia, unspecified affecting right dominant side; E11.40 Type 2 diabetes mellitus with diabetic neuropathy, unspecified; I10 Essential (primary) hypertension; E78.5 Hyperlipidemia, unspecified; F17.210 Nicotine dependence, cigarettes, uncomplicated; M54.16 Radiculopathy, lumbar region; M48.061 Spinal stenosis, lumbar region without neurogenic claudication; Z11.59 Encounter for screening for other viral diseases; Z79.4 Long term (current) use of insulin
CPT/HCPCS: 36415; 36416; 70450; 71045; 72125; 72156; 72157; 72158; 74018; 76000; 80048; 80053; 80202; 81001; 81003; 81015; 82550; 83605; 83735; 83930; 83935; 84295; 84484; 85025; 85027; 85610; 85730; 86140; 87040; 87086; 87635; 93005; 93970; 96365; 96366; 96367; 96368; 96375; A9579; C1776; J0360; J0690; J0696; J1100; J1170; J1650; J1815; J1885; J2001; J2250; J2270; J2405; J2704; J2930; J3010; J3370; J7050; J7512; L0174; U0003